=== PATIENT | male | born 1975 | race Caucasian/White ===

== ENCOUNTER 2016-08-24 16:06 | Emergency (ER) | payer BC ==
[2016-08-24 16:22] VITALS: O2SAT 95
--- NOTE | 2016-08-24 16:43 | ERPHSYRPT ---
- History of Present Illness Time Seen by Provider: 08/24/16 16:38 Source: patient Exam Limitations: no limitations Patient Subjective Stated Complaint: pt states he has had left 2nd digit finger pain. denies any injury. Triage Nursing Assessment: pt pink, warm, dry. radial pulses strong. no deformity or swelling noted to left 2nd digit. Physician History: The patient is a 40-year-old right-handed male complaining of pain in his left index finger for 2 weeks. He is also a little bit of swelling. He denies any injury. It hurts when he makes a fist. He has tried ice last night. Occurred: other (2 weeks) Method of Injury: unknown Quality: aching Severity of Pain-Max: mild Severity of Pain-Current: mild Extremities Pain Location: 2nd finger: left Modifying Factors: Improves With: cold therapy, pain medication (tylenol) Associated Symptoms: none Allergies/Adverse Reactions: No Known Drug Allergies Allergy (Verified 08/24/16 16:22) Home Medications: Losartan Potassium 50 mg [Cozaar 50 MG] 50 mg PO DAILY 10/11/13 [History] Hx Tetanus, Diphtheria Vaccination/Date Given: Yes (unknown) Hx Influenza Vaccination/Date Given: No Hx Pneumococcal Vaccination/Date Given: No Immunizations Up to Date: Yes - Review of Systems Constitutional: No Fever, No Chills Eyes: No Symptoms Ears, Nose, & Throat: No Symptoms Respiratory: No Cough, No Dyspnea Cardiac: No Chest Pain, No Edema, No Syncope Abdominal/Gastrointestinal: No Abdominal Pain, No Nausea, No Vomiting, No Diarrhea Genitourinary Symptoms: No Dysuria Musculoskeletal: Other (left index finger pain and swelling) Skin: No Rash Neurological: No Dizziness, No Focal Weakness, No Sensory Changes Psychological: No Symptoms Endocrine: No Symptoms Hematologic/Lymphatic: No Symptoms Immunological/Allergic: No Symptoms All Other Systems: Reviewed and Negative - Past Medical History Pertinent Past Medical History: Yes Neurological History: No Pertinent History ENT History: Other Cardiac History: Hypertension Respiratory History: Asthma Endocrine Medical History: Diabetes Type II Musculoskeletal History: No Pertinent History GI Medical History: GERD History: No Pertinent History Psycho-Social History: No Pertinent History Male Reproductive Disorders: No Pertinent History Other Medical History: COLONOSCOPY - Past Surgical History Past Surgical History: Yes Neuro Surgical History: No Pertinent History Cardiac: Cardiac Catheterization Respiratory: No Pertinent History Gastrointestinal: No Pertinent History Genitourinary: No Pertinent History Musculoskeletal: No Pertinent History Male Surgical History: No Pertinent History Other Surgical History: EYE SURGERY X3 - Social History Smoking Status: Never smoker Exposure to second hand smoke: Yes Drug Use: none Patient Lives Alone: No - Nursing Vital Signs Nursing Vital Signs: Initial Vital Signs Temperature 98.8 F Temperature Source Oral Pulse Rate 84 Respiratory Rate 18 Blood Pressure [Right Arm] 121/83 Pain Intensity 9 - Physical Exam General Appearance: alert Eyes, Ears, Nose, Throat Exam: moist mucous membranes Neck Exam: non-tender, supple Cardiovascular/Respiratory Exam: chest non-tender, normal breath sounds, regular rate/rhythm, no respiratory distress Abdominal Exam: non-tender, No guarding Back Exam: normal inspection, No vertebral tenderness Shoulder Exam: normal inspection Elbow/Forearm Exam: normal inspection Wrist Exam: normal inspection Hand Exam: soft tissue tenderness (Examination of the left index finger reveals some mild swelling of the proximal phalange and tenderness to that region. The area is also tender when the patient flexes the index finger.) Neuro/Tendon Exam: normal sensation, normal motor functions Mental Status Exam: alert, oriented x 3, cooperative Skin Exam: normal color, warm, dry SpO2 Interpretation: normal SpO2: 95 Oxygen Delivery: Room Air - Radiology Exams Left Hand X-ray Interpretation: Interpreted by me, Negative, No Fracture Ordered Tests: Active Orders 24 hr Category Date Time Status FINGER(S) Stat Exams 08/24/16 16:23 Taken - Departure Time of Disposition: 16:47 Departure Disposition: Home Clinical Impression: Tendinitis of finger of left hand Condition: Stable Critical Care Time: No Additional Instructions: You have tendinitis of the index finger of your left hand. You were given a prescription for naproxen 500 mg twice a day as needed. Apply ice as needed. Prescriptions: Naproxen 500 mg PO BID PRN #30 tablet.
--- NOTE | 2016-08-24 16:46 | XRAY ---
Indication: Second finger swelling. Comparison: Left hand June 02, 2007. 3 views of the left second finger demonstrates mild soft tissue swelling. No other bony, articular, or soft tissue abnormalities.
[2016-08-24 16:54] VITALS: BP 117/79; PULSE 78
== END 2016-08-24 17:00 | disposition home or self-care (01) ==
LOC: ED 16:06
DX: M77.9 Enthesopathy, unspecified (principal); M79.645 Pain in left finger(s)
CPT/HCPCS: 73140; 99283

== ENCOUNTER 2019-04-16 11:40 | Emergency (ER) | payer OTHER ==
--- NOTE | 2019-04-16 11:47 | ERPHSYRPT ---
- History of Present Illness Time Seen by Provider: 04/16/19 11:40 Source: patient Exam Limitations: no limitations Physician History: right-sided chest pain and the pain that while taking a deep breath for last 1 month since his right shoulder surgery. Also has some cough and sore throat. Denies any fever.. Timing/Duration: other (1 month) Activities at Onset: none Severity of Dyspnea-Max: moderate Severity of Dyspnea-Current: moderate Possible Cause: frequent episodes Modifying Factors: Improves With: nothing Associated Symptoms: cough, chest pain/discomfort, No anxiety, No edema, No fever, No insomnia, No loss of appetite, No lightheadedness, No wheezing, No weakness, No ankle swelling, No chills, No hemoptysis, No calf pain, No dizziness, No heaviness, No heart racing, No lightheadedness, No leg swelling, No muscle spasms feet, No muscle spasms hands International travel in last 2 weeks: No Allergies/Adverse Reactions: No Known Drug Allergies Allergy (Verified 04/16/19 11:47) Home Medications: Losartan Potassium 50 mg [Cozaar 50 MG] 50 mg PO DAILY 10/11/13 [History] Hx Tetanus, Diphtheria Vaccination/Date Given: Yes (unknown) Hx Influenza Vaccination/Date Given: No Hx Pneumococcal Vaccination/Date Given: No - Review of Systems Constitutional: No Fever, No Chills Eyes: No Symptoms Ears, Nose, & Throat: No Symptoms Respiratory: Cough, Dyspnea Cardiac: Chest Pain, No Edema, No Syncope Abdominal/Gastrointestinal: No Abdominal Pain, No Nausea, No Vomiting, No Diarrhea Genitourinary Symptoms: No Dysuria Musculoskeletal: No Back Pain, No Neck Pain Skin: No Rash Neurological: No Dizziness, No Focal Weakness, No Sensory Changes Psychological: No Symptoms Endocrine: No Symptoms All Other Systems: Reviewed and Negative - Past Medical History Pertinent Past Medical History: Yes Neurological History: No Pertinent History ENT History: Other Cardiac History: Hypertension Respiratory History: Asthma Endocrine Medical History: Diabetes Type II Musculoskeletal History: No Pertinent History GI Medical History: GERD History: No Pertinent History Psycho-Social History: No Pertinent History Male Reproductive Disorders: No Pertinent History Other Medical History: COLONOSCOPY - Past Surgical History Past Surgical History: Yes Neuro Surgical History: No Pertinent History Cardiac: Cardiac Catheterization Respiratory: No Pertinent History Gastrointestinal: No Pertinent History Genitourinary: No Pertinent History Musculoskeletal: No Pertinent History Male Surgical History: No Pertinent History Other Surgical History: EYE SURGERY X3 - Social History Smoking Status: Never smoker Exposure to second hand smoke: Yes Drug Use: none Patient Lives Alone: No - Nursing Vital Signs Nursing Vital Signs: Initial Vital Signs Temperature 97.4 F 04/16/19 11:41 Pulse Rate 106 H 04/16/19 11:41 Respiratory Rate 18 04/16/19 11:41 Blood Pressure 132/92 04/16/19 11:41 O2 Sat by Pulse Oximetry 97 04/16/19 11:41 Pain Scale Pain Intensity 0 - Physical Exam General Appearance: no apparent distress, alert Eye Exam: PERRL/EOMI Neck Exam: normal inspection, supple, No Kernig's, No meningismus Respiratory Exam: normal breath sounds, chest tenderness, lungs clear, airway intact, No respiratory distress, No diminished breath sounds, No accessory muscle use, No prolonged expirations, No crackles/rales, No rhonchi, No wheezing , No stridor Cardiovascular/Chest Exam: normal heart sounds, regular rate/rhythm Abdominal/Gastrointestinal Exam: soft, normal bowel sounds, No tenderness, No distention, No mass Extremity Exam: non-tender, normal range of motion, normal inspection, no calf tenderness, no pedal edema Neurologic Exam: alert, oriented x 3, cooperative, brush filler hand II-XII nml as tested, sensation nml, No motor deficits Skin Exam: normal color, warm, No dry SpO2 Interpretation: normal - Course EKG Interpreted by Me: RATE (99), Sinus Rhythm, Non-specific ST Changes - Radiology Exams Chest X-ray Interpretation: Discussed w/ radiologist, Negative - CT Exams Chest CT Interpretation: Discussed w/radiologist, No PE Ordered Tests: Active Orders 24 hr Category Date Time Status Soccer Player STAT Care 04/16/19 11:44 Active EKG-ER Only STAT Care 04/16/19 11:42 Active IV Insertion STAT Care 04/16/19 11:42 Active Pulse Oximetry (ED) STAT Care 04/16/19 11:42 Active CHEST 1 VIEW (PORTABLE) Stat Exams 04/16/19 11:44 Completed CHEST WITH CONTRAST [CT] Stat Exams 04/16/19 13:02 Completed BLOOD CULTURE Stat Lab 04/16/19 12:20 Received CBC W DIFF Stat Lab 04/16/19 12:20 Completed CMP Stat Lab 04/16/19 12:20 Completed D-DIMER QUANTITATIVE Stat Lab 04/16/19 12:20 Completed Lactic Acid Stat Lab 04/16/19 12:15 Results NT PRO BNP Stat Lab 04/16/19 12:20 Completed TROPONIN Stat Lab 04/16/19 12:20 Completed Peak Expiratory Flow Rate ONCE RT 04/16/19 12:22 Active Respiratory Therapy Assessment DAILY RT 04/16/19 12:16 Active Medication Summary Discontinued Medications Generic Name Dose Route Start Last Admin Trade Name Freq PRN Reason Stop Dose Admin Albuterol/Ipratropium 3 ml 04/16/19 11:42 04/16/19 12:11 Duoneb 0.5-3 Mg/3 Ml Neb IH 04/16/19 11:43 3 ml STAT ONE Administration Albuterol/Ipratropium Confirm 04/16/19 12:01 Duoneb 0.5-3 Mg/3 Ml Neb Administered 04/16/19 12:02 Dose 3 ml IH .STK-MED ONE Aspirin 324 mg 04/16/19 11:42 04/16/19 12:28 Baby Aspirin 81 Mg Chew PO 04/16/19 11:43 324 mg STAT ONE Administration Aspirin Confirm 04/16/19 12:26 Baby Aspirin 81 Mg Chew Administered 04/16/19 12:27 Dose 324 mg .ROUTE .STK-MED ONE Lab/Rad Data: Laboratory Result Diagrams 04/16/19 12:20 04/16/19 12:20 Laboratory Results 04/16/19 04/16/19 04/16/19 Range/Units 12:20 12:20 12:20 WBC (4.0-10.5) K/mm3 RBC (4.1-5.6) M/mm3 Hgb (12.5-18.0) gm/dl Hct (42-50) % MCV (78-100) fl MCH (26-32) pg MCHC (32-36) g/dl RDW (11.5-14.0) % Plt Count (150-450) K/mm3 MPV (6-9.5) fl Gran % (36.0-66.0) % Eos # (Auto) (0-0.5) Absolute Lymphs (auto) (1.0-4.6) Absolute Monos (auto) (0.0-1.3) Lymphocytes % (24.0-44.0) % Monocytes % (0.0-12.0) % Eosinophils % (0.00-5.0) % Basophils % (0.0-0.4) % Absolute Granulocytes (1.4-6.9) Basophils # (0-0.4) D-Dimer 549 H* (215-500) ng/mL Sodium 135 L (137-145) mmol/L Potassium 4.9 (3.5-5.1) mmol/L Chloride 101 (98-107) mmol/L Carbon Dioxide 22 (22-30) mmol/L Anion Gap 17.0 H (5-15) MEQ/L BUN 21 H (9-20) mg/dL Creatinine 0.84 (0.66-1.25) mg/dL Estimated GFR > 60.0 ML/MIN Glucose 379 H (74-106) mg/dL Lactic Acid (0.4-2.0) Calcium 9.9 (8.4-10.2) mg/dL Total Bilirubin 0.80 (0.2-1.3) mg/dL AST 26 (17-59) U/L ALT 25 (0-50) U/L Alkaline Phosphatase 123 (38-126) U/L Troponin I < 0.012 (0.000-0.034) ng/mL NT-Pro-B Natriuret Pep 148 (0-450) pg/mL Serum Total Protein 8.6 H (6.3-8.2) g/dL Albumin 4.4 (3.5-5.0) g/dL Influenza Type A Ag NEGATIVE (NEGATIVE) Influenza Type B Ag NEGATIVE (NEGATIVE) RSV (PCR) NEGATIVE (Negative) Group A Strep Antibody NEGATIVE (NEGATIVE) 04/16/19 04/16/19 Range/Units 12:20 12:15 WBC 8.1 (4.0-10.5) K/mm3 RBC 5.94 H (4.1-5.6) M/mm3 Hgb 17.0 (12.5-18.0) gm/dl Hct 48.0 (42-50) % MCV 80.8 (78-100) fl MCH 28.6 (26-32) pg MCHC 35.4 (32-36) g/dl RDW 13.3 (11.5-14.0) % Plt Count 155 (150-450) K/mm3 MPV 11.2 H (6-9.5) fl Gran % 51.6 (36.0-66.0) % Eos # (Auto) 0.07 (0-0.5) Absolute Lymphs (auto) 3.06 (1.0-4.6) Absolute Monos (auto) 0.75 (0.0-1.3) Lymphocytes % 37.7 (24.0-44.0) % Monocytes % 9.2 (0.0-12.0) % Eosinophils % 0.9 (0.00-5.0) % Basophils % 0.6 (0.0-0.4) % Absolute Granulocytes 4.18 (1.4-6.9) Basophils # 0.05 (0-0.4) D-Dimer (215-500) ng/mL Sodium (137-145) mmol/L Potassium (3.5-5.1) mmol/L Chloride (98-107) mmol/L Carbon Dioxide (22-30) mmol/L Anion Gap (5-15) MEQ/L BUN (9-20) mg/dL Creatinine (0.66-1.25) mg/dL Estimated GFR ML/MIN Glucose (74-106) mg/dL Lactic Acid 2.1 H (0.4-2.0) Calcium (8.4-10.2) mg/dL Total Bilirubin (0.2-1.3) mg/dL AST (17-59) U/L ALT (0-50) U/L Alkaline Phosphatase (38-126) U/L Troponin I (0.000-0.034) ng/mL NT-Pro-B Natriuret Pep (0-450) pg/mL Serum Total Protein (6.3-8.2) g/dL Albumin (3.5-5.0) g/dL Influenza Type A Ag (NEGATIVE) Influenza Type B Ag (NEGATIVE) RSV (PCR) (Negative) Group A Strep Antibody (NEGATIVE) - Progress Progress: improved Air Movement: good Progress Note: 04/16/19 14:17 patient's symptoms for more than one month duration. Workup negative. Most likely this is related to his shoulders surgery and muscular pain. No evidence of ACS. Blood Culture(s) Obtained: No Antibiotics given: No Counseled pt/family regarding: lab results, diagnosis, need for follow-up, rad results - Departure Departure Disposition: Home Clinical Impression: Chest wall pain Condition: Good Critical Care Time: No Referrals: DOCTOR,NO FAMILY [Primary Care Provider] - 04/17/19 Instructions: Chest Pain That Is Not Caused by the Heart (DC) Additional Instructions: see PCP for outpatient stress test. Return to the ER for an emergency or his symptoms or worsening symptoms.
[2019-04-16] MEDS ORDERED: DUONEB 0.5-3 MG/3 ml Neb IH ONE (12:01)
[2019-04-16] MEDS: DUONEB 0.5-3 MG/3 ml Neb IH ONE (12:11)
[2019-04-16 12:17] LABS: Lactic Acid 2.1 (0.4-2.0)
[2019-04-16] MEDS ORDERED: BABY ASPIRIN 81 MG CHEW ONE (12:26)
[2019-04-16] MEDS: BABY ASPIRIN 81 MG CHEW PO ONE (12:28)
--- NOTE | 2019-04-16 12:29 | XRAY ---
Indication: Right chest pain. Comparison: April 29, 2013. Portable chest again demonstrates normal heart and lungs. Bony thorax intact. No new/acute findings.
[2019-04-16 12:42] LABS: Absolute Neutrophil Ct (ANC) 4.18 (1.4-6.9); BASOPHIL % 0.6 % (0.0-0.4); Basophil (Absolute #) 0.05 (0-0.4); Eosinophil % 0.9 % (0.00-5.0); Eosinophil (Absolute #) 0.07 (0-0.5); Lymphocyte (Absolute #) 3.06 (1.0-4.6); Lymphocytes % 37.7 % (24.0-44.0); Mean Cell Volume 80.8 fl (78-100); Mean Corpuscular Hemoglobin 28.6 pg (26-32); Mean Corpuscular Hgb Concent. 35.4 g/dl (32-36); Mean Platelet Volume 11.2 fl (6-9.5); Monocyte (Absolute #) 0.75 (0.0-1.3); Monocytes % 9.2 % (0.0-12.0); Neutrophil % 51.6 % (36.0-66.0); Platelet Count 155 K/mm3 (150-450); Red Blood Count 5.94 M/mm3 (4.1-5.6); Red Cell Distribution Width 13.3 % (11.5-14.0); White Blood Count 8.1 K/mm3 (4.0-10.5)
[2019-04-16 13:00] LABS: ALBUMIN 4.4 g/dL (3.5-5.0); ALKALINE PHOSPHATASE 123 U/L (38-126); BLOOD UREA NITROGEN 21 mg/dL (9-20); CHLORIDE 101 mmol/L (98-107); Calcium 9.9 mg/dL (8.4-10.2); Carbon Dioxide 22 mmol/L (22-30); Creatinine 1 0.84 mg/dL (0.66-1.25); Glucose 379 mg/dL (74-106); NT PRO BNP 148 pg/mL (0-450); Potassium 4.9 mmol/L (3.5-5.1); SGOT/AST 26 U/L (17-59); SGPT/ALT 25 U/L (0-50); SODIUM 135 mmol/L (137-145); Total Protein 8.6 g/dL (6.3-8.2)
[2019-04-16 13:05] LABS: TROPONIN < 0.012 ng/mL (0.000-0.034)
[2019-04-16 13:23] LABS: INFLUENZA A NEGATIVE (NEGATIVE); INFLUENZA B NEGATIVE (NEGATIVE); RESPIRATORY SYNCTIAL VIRUS NEGATIVE (Negative)
--- NOTE | 2019-04-16 14:09 | XRAY ---
Indication: Chest pain. Elevated d-dimer. Multiple contiguous axial images obtained through the chest using 80 cc Isovue 370 contrast and PE protocol. Comparison: April 29, 2013. There is satisfactory opacification of the pulmonary arteries to include the lobar and segmental branches. Again no pulmonary embolus. Heart is not enlarged. Aorta is normal in course and caliber. No pathologic mediastinal/hilar lymphadenopathy. Lungs are inflated again with minimal lingula and left base fibrosis/scarring. No suspicious pulmonary mass, infiltrate, or effusion. Bony thorax intact. Limited upper abdomen again demonstrates fatty liver and previous cholecystectomy. Impression: 1. Again negative pulmonary embolus. No new/acute cardiopulmonary abnormalities. 2. Stable fatty liver. CT DI 27.47
[2019-04-16 14:21] VITALS: BP 119/69; PULSE 98; O2SAT 95
== END 2019-04-16 14:30 | disposition home or self-care (01) ==
LOC: ED 11:40
DX: R07.9 Chest pain, unspecified (principal)
CPT/HCPCS: 36415; 71045; 71260; 80053; 83605; 83880; 84484; 85025; 85379; 87040; 87631; 87651; 93005; 93041; 94150; 94640; 94760; 99284; A9270-GY

== ENCOUNTER 2020-03-05 07:32 | Emergency (ER) | payer SELFPAY ==
[2020-03-05] MEDS ORDERED: Sodium Chloride 0.9% 1000 ML 1,000 ML IV STA (08:04)
[2020-03-05] MEDS ORDERED: Zofran 4 MG/2 ML VIAL IV ONE (08:04)
[2020-03-05] MEDS ORDERED: Hydromorphone 1 mg/ml Injection IV ONE ×2 (08:04→09:25)
--- NOTE | 2020-03-05 08:11 | ERPHSYRPT ---
- History of Present Illness Time Seen by Provider: 03/05/20 07:45 Historian: patient Exam Limitations: no limitations Patient Subjective Stated Complaint: pt here for abd pain to right side of abd since last night with nausea, no fever Triage Nursing Assessment: pt alert, waked in, resp easy, mask in place, holding right side of abd, abd soft, no edema Physician History: Patient has had right-sided lower abdominal pain for the past 11 hours. Patient has not been evaluated or treated prior to coming into the emergency department Timing/Duration: hour(s) (11) Activities at Onset: none Quality: aching, sharpness, stabbing, throbbing Abdominal Pain Onset Location: RLQ Pain Radiation: no radiation Severity of Pain-Max: severe Severity of Pain-Current: severe Associated Symptoms: diarrhea, nausea, No back, No chest pain, No diaphoresis, No fever/chills, No fatigue, No headache, No heartburn, No loss of appetite, No neck pain, No rash, No shortness of breath, No syncope, No testicular pain, No vomiting, No weakness Previous symptoms: same symptoms as today, no recent treatment Allergies/Adverse Reactions: No Known Drug Allergies Allergy (Verified 03/05/20 07:48) Home Medications: Losartan Potassium 50 mg [Cozaar 50 MG] 50 mg PO DAILY 10/11/13 [History] Hx Tetanus, Diphtheria Vaccination/Date Given: Yes (unknown) Hx Influenza Vaccination/Date Given: No Hx Pneumococcal Vaccination/Date Given: No Immunizations Up to Date: Yes Travel Risk - International Travel Have you traveled outside of the country in past 3 weeks: No - Coronavirus Screening Are you exhibiting any of the following symptoms?: No Close contact with a COVID-19 positive Pt in past 14-21 Days: No - Review of Systems Constitutional: No Fever, No Chills Eyes: No Eye Pain, No Vision Changes, No Other (negative discoloration) Ears, Nose, & Throat: No Nose Congestion, No Sinus Drainage, No Mouth Swelling, No Painful Swallowing Respiratory: No Cough, No Dyspnea Cardiac: No Chest Pain, No Edema, No Syncope Abdominal/Gastrointestinal: No Abdominal Pain, No Nausea, No Vomiting, No Diarrhea Genitourinary Symptoms: No Dysuria, No Hematuria, No Urgency, No Urinary Retention, No Flank Pain, No Testicle Pain Musculoskeletal: No Back Pain, No Neck Pain Skin: No Rash Neurological: No Dizziness, No Focal Weakness, No Headache, No Sensory Changes Psychological: No Anxiety Endocrine: No Polyuria, No Excessive Sweating Hematologic/Lymphatic: No Easy Bleeding, No Easy Bruising All Other Systems: Reviewed and Negative - Past Medical History Pertinent Past Medical History: Yes Neurological History: No Pertinent History ENT History: Other Cardiac History: Hypertension Respiratory History: Asthma Endocrine Medical History: Diabetes Type II Musculoskeletal History: No Pertinent History GI Medical History: GERD History: No Pertinent History Psycho-Social History: No Pertinent History Male Reproductive Disorders: No Pertinent History Other Medical History: COLONOSCOPY - Past Surgical History Past Surgical History: Yes Neuro Surgical History: No Pertinent History Cardiac: Cardiac Catheterization Respiratory: No Pertinent History Gastrointestinal: Cholecystectomy Genitourinary: No Pertinent History Musculoskeletal: No Pertinent History, Orthopedic Surgery Male Surgical History: No Pertinent History Other Surgical History: EYE SURGERY X9,shoulder x2 - Social History Smoking Status: Never smoker Exposure to second hand smoke: Yes Drug Use: none Patient Lives Alone: No - Nursing Vital Signs Nursing Vital Signs: Initial Vital Signs Temperature 98.1 F 03/05/20 07:43 Pulse Rate 92 H 03/05/20 07:43 Respiratory Rate 16 03/05/20 07:43 Blood Pressure 143/87 03/05/20 07:43 O2 Sat by Pulse Oximetry 95 03/05/20 07:43 Pain Scale Pain Intensity 2 - Physical Exam General Appearance: no apparent distress, alert Eye Exam: PERRL/EOMI, eyes nml inspection Ears, Nose, Throat Exam: normal ENT inspection, pharynx normal, moist mucous membranes Neck Exam: normal inspection, non-tender, supple, full range of motion Respiratory Exam: normal breath sounds, lungs clear, airway intact, No respiratory distress, No accessory muscle use, No prolonged expirations, No crackles/rales, No rhonchi Cardiovascular Exam: regular rate/rhythm, normal heart sounds Gastrointestinal/Abdomen Exam: soft, No tenderness, No mass Male Genitalia Exam: normal genitalia, other (chaperoned Sharon Carnes RN), No hernia, No testicular tenderness, No testicular mass, No penile lesion, No penile discharge Back Exam: normal inspection, normal range of motion, No CVA tenderness, No vertebral tenderness Extremity Exam: normal inspection, normal range of motion, pelvis stable Neurologic Exam: alert, oriented x 3, cooperative, acid leveler II-XII nml as tested, normal mood/affect, sensation nml, No motor deficits Skin Exam: normal color, warm, dry, No rash, No petechiae, No ecchymosis Lymphatic Exam: No adenopathy, No inguinal node tender (L), No inguinal node tender (R) SpO2 Interpretation: normal SpO2: 95 O2 Delivery: Room Air - Course Nursing assessment & vital signs reviewed: Yes - CT Exams Abdomen/Pelvis CT Interpretation: No appendicitis, Other (Per radiology interpretation: Minimal colonic diverticulitis and fatty liver. Remaining CT of the abdomen and pelvis with contrast exam is negative) Ordered Tests: Active Orders 24 hr Category Date Time Status IV Insertion STAT Care 03/05/20 08:04 Active ABDOMEN AND PELVIS W CONTRAST [CT] Stat Exams 03/05/20 09:25 Completed AMYLASE Stat Lab 03/05/20 08:00 Completed CBC W DIFF Stat Lab 03/05/20 08:00 Completed CMP Stat Lab 03/05/20 08:00 Completed LIPASE Stat Lab 03/05/20 08:00 Completed Lactic Acid Stat Lab 03/05/20 08:58 Completed PROTIME WITH INR Stat Lab 03/05/20 08:00 Completed UA W/RFX UR CULTURE Stat Lab 03/05/20 08:11 Completed Medication Summary Discontinued Medications Generic Name Dose Route Start Last Admin Trade Name Jocelyn PRN Reason Stop Dose Admin Hydromorphone HCl 1 mg 03/05/20 08:04 03/05/20 08:27 Hydromorphone 1 Mg/Ml Injection IV 03/05/20 08:05 1 mg STAT ONE Administration Hydromorphone HCl Confirm 03/05/20 08:12 Hydromorphone 1 Mg/Ml Injection Administered 03/05/20 08:13 Dose 1 mg .ROUTE .STK-MED ONE Hydromorphone HCl 1 mg 03/05/20 09:25 03/05/20 09:32 Hydromorphone 1 Mg/Ml Injection IV 03/05/20 09:26 1 mg STAT ONE Administration Hydromorphone HCl Confirm 03/05/20 09:26 Hydromorphone 1 Mg/Ml Injection Administered 03/05/20 09:27 Dose 1 mg .ROUTE .STK-MED ONE Sodium Chloride 1,000 mls @ 999 mls/hr 03/05/20 08:04 03/05/20 10:15 Sodium Chloride 0.9% 1000 Ml IV 03/05/20 09:04 Infused .Q1H1M STA Infusion Sodium Chloride Confirm 03/05/20 08:12 Sodium Chloride 0.9% 1000 Ml Administered 03/05/20 08:13 Dose 1,000 mls @ ud .ROUTE .STK-MED ONE Insulin Human Regular 10 unit 03/05/20 09:27 03/05/20 09:32 Humulin R IV 03/05/20 09:28 10 unit STAT ONE Administration Insulin Human Regular Confirm 03/05/20 09:29 Humulin R Administered 03/05/20 09:30 Dose 10 unit .ROUTE .STK-MED ONE Ondansetron HCl 4 mg 03/05/20 08:04 03/05/20 08:28 Zofran 4 Mg/2 Ml Vial IV 03/05/20 08:05 4 mg STAT ONE Administration Ondansetron HCl Confirm 03/05/20 08:12 Zofran 4 Mg/2 Ml Vial Administered 03/05/20 08:13 Dose 4 mg .ROUTE .STK-MED ONE Lab/Rad Data: Laboratory Result Diagrams 03/05/20 08:00 03/05/20 08:00 Laboratory Results 03/05/20 03/05/20 03/05/20 Range/Units 08:58 08:11 08:00 WBC (4.0-10.5) K/mm3 RBC (4.1-5.6) M/mm3 Hgb (12.5-18.0) gm/dl Hct (42-50) % MCV (78-100) fl MCH (26-32) pg MCHC (32-36) g/dl RDW (11.5-14.0) % Plt Count (150-450) K/mm3 MPV (7.5-11.0) fl Gran % (36.0-66.0) % Eos # (Auto) (0-0.5) Absolute Lymphs (auto) (1.0-4.6) Absolute Monos (auto) (0.0-1.3) Lymphocytes % (24.0-44.0) % Monocytes % (0.0-12.0) % Eosinophils % (0.00-5.0) % Basophils % (0.0-0.4) % Absolute Granulocytes (1.4-6.9) Basophils # (0-0.4) PT 12.6 (8.83-12.87) SECONDS INR 1.11 (0.8-3.0) Sodium (137-145) mmol/L Potassium (3.5-5.1) mmol/L Chloride (98-107) mmol/L Carbon Dioxide (22-30) mmol/L Anion Gap (5-15) MEQ/L BUN (9-20) mg/dL Creatinine (0.66-1.25) mg/dL Estimated GFR ML/MIN Glucose (74-106) mg/dL Lactic Acid 0.8 (0.4-2.0) Calcium (8.4-10.2) mg/dL Total Bilirubin (0.2-1.3) mg/dL AST (17-59) U/L ALT (0-50) U/L Alkaline Phosphatase (38-126) U/L Serum Total Protein (6.3-8.2) g/dL Albumin (3.5-5.0) g/dL Amylase (30-110) U/L Lipase (23-300) U/L Urine Color YELLOW (YELLOW) Urine Appearance CLEAR (CLEAR) Urine pH 5.0 (5-6) Ur Specific Unity 1.040 (1.005-1.025) Urine Protein NEGATIVE (Negative) Urine Ketones SMALL (NEGATIVE) Urine Blood NEGATIVE (0-5) Junior/ul Urine Nitrite NEGATIVE (NEGATIVE) Urine Bilirubin NEGATIVE (NEGATIVE) Urine Urobilinogen NEGATIVE (0-1) mg/dL Ur Leukocyte Esterase NEGATIVE (NEGATIVE) Urine WBC (Auto) 0-2 (0-5) /HPF Urine RBC (Auto) NONE (0-2) /HPF U Epithel Cells (Auto) NONE (FEW) /HPF Urine Bacteria (Auto) NONE SEEN (NEGATIVE) /HPF Urine Mucus (Auto) SLIGHT (NEGATIVE) /HPF Urine Culture Reflexed NO (NO) Urine Glucose >=500 (NEGATIVE) mg/dL 03/05/20 03/05/20 Range/Units 08:00 08:00 WBC 4.9 (4.0-10.5) K/mm3 RBC 5.83 H (4.1-5.6) M/mm3 Hgb 16.6 (12.5-18.0) gm/dl Hct 47.2 (42-50) % MCV 81.0 (78-100) fl MCH 28.5 (26-32) pg MCHC 35.2 (32-36) g/dl RDW 13.4 (11.5-14.0) % Plt Count 151 (150-450) K/mm3 MPV 10.4 (7.5-11.0) fl Gran % 50.9 (36.0-66.0) % Eos # (Auto) 0.01 (0-0.5) Absolute Lymphs (auto) 1.58 (1.0-4.6) Absolute Monos (auto) 0.77 (0.0-1.3) Lymphocytes % 32.6 (24.0-44.0) % Monocytes % 15.9 H (0.0-12.0) % Eosinophils % 0.2 (0.00-5.0) % Basophils % 0.4 (0.0-0.4) % Absolute Granulocytes 2.47 (1.4-6.9) Basophils # 0.02 (0-0.4) PT (8.83-12.87) SECONDS INR (0.8-3.0) Sodium 132 L (137-145) mmol/L Potassium 4.4 (3.5-5.1) mmol/L Chloride 100 (98-107) mmol/L Carbon Dioxide 23 (22-30) mmol/L Anion Gap 13.4 (5-15) MEQ/L BUN 12 (9-20) mg/dL Creatinine 0.77 (0.66-1.25) mg/dL Estimated GFR > 60.0 ML/MIN Glucose 319 H (74-106) mg/dL Lactic Acid (0.4-2.0) Calcium 9.1 (8.4-10.2) mg/dL Total Bilirubin 0.70 (0.2-1.3) mg/dL AST 39 (17-59) U/L ALT 45 (0-50) U/L Alkaline Phosphatase 88 (38-126) U/L Serum Total Protein 7.7 (6.3-8.2) g/dL Albumin 4.2 (3.5-5.0) g/dL Amylase 54 (30-110) U/L Lipase 121 (23-300) U/L Urine Color (YELLOW) Urine Appearance (CLEAR) Urine pH (5-6) Ur Specific Unity (1.005-1.025) Urine Protein (Negative) Urine Ketones (NEGATIVE) Urine Blood (0-5) Junior/ul Urine Nitrite (NEGATIVE) Urine Bilirubin (NEGATIVE) Urine Urobilinogen (0-1) mg/dL Ur Leukocyte Esterase (NEGATIVE) Urine WBC (Auto) (0-5) /HPF Urine RBC (Auto) (0-2) /HPF U Epithel Cells (Auto) (FEW) /HPF Urine Bacteria (Auto) (NEGATIVE) /HPF Urine Mucus (Auto) (NEGATIVE) /HPF Urine Culture Reflexed (NO) Urine Glucose (NEGATIVE) mg/dL - Progress Progress: unchanged Progress Note: 03/05/20 09:26 Pain had improved slightly with 1 mg Dilaudid but returned. Patient will give another milligram of Dilaudid with urinalysis being negative, patient still has significant right lower quadrant pain and no other lab work to suggest any other etiology, CT of the abdomen pelvis with IV contrast will be performed since patient had tenderness to the right lower quadrant on examination 03/05/20 10:30 Patient's pain is very well controlled and he has no tenderness on repeat abdominal examination to the right lower quadrant or any other aspect of his abdomen 03/05/20 11:10 Patient came in with worsening right lower quadrant pain over the past 12 hours, so lab work, urinalysis, and CT scan were performed. Lab work, urinalysis, and CT scan did not give an etiology to why he is having right lower quadrant abdominal pain, but he did have signs of hypoglycemia so insulin was given to help lower his glucose and he was given 2 rounds of Dilaudid to get his pain under control. Patient did have incidental findings of colonic diverticulosis and fatty liver that were mild but otherwise CT of the abdomen pelvis were negative and lab work looked good and did not require immediate surgical cons ultation, urologic consultation or inpatient mission further evaluation, monitoring or treatment. Patient will be discharged home with follow-up with his primary care physician or primary care referral and general surgeon referral to continue evaluation of his symptoms. I reviewed with him in detail what signs and symptoms to return back to the emergency department Counseled pt/family regarding: lab results, diagnosis, need for follow-up, rad results - Departure Departure Disposition: Home Clinical Impression: RLQ abdominal pain, Colon, diverticulosis, Fatty liver Hyperglycemia due to type 2 diabetes mellitus Qualifiers: Diabetes mellitus manager long term care insulin use: unspecified mcfp insulin use status Qualified Code(s): E11.65 - Type 2 diabetes mellitus with hyperglycemia Hypertension Qualifiers: Hypertension type: essential hypertension Qualified Code(s): I10 - Essential (primary) hypertension Condition: Good Critical Care Time: No Referrals: DUYEN MOSER MD [ASSOCIATE STAFF] - 03/05/20 (General surgeon for your reference ) DOCTOR,NO FAMILY [Primary Care Provider] - ARIN VACA [ACTIVE STAFF] - Follow Up with PCP/3 days (Primary care physician to follow-up your medical conditions) Instructions: High Blood Pressure (DC), Acute Abdomen (Belly Pain), Diverticulosis (DC), Hyperglycemia, Adult (DC), Nonalcoholic Fatty Liver Disease (DC) Additional Instructions: Evaluation today did not show a reason why you are having pain your right lower quadrant is no diverticulitis, appendicitis, blockage, inflammation of any organs or stones were seen return immediately back to emergency room for any worsening abdominal pain, any fever, new blood in urine, any blood in the stool, or any other concerning signs or symptoms that were not present at today's emergency room visit for immediate reevaluation in the emergency department Forms: Work/School Release Form
[2020-03-05] MEDS ORDERED: Hydromorphone 1 mg/ml Injection ONE ×2 (08:12→09:26)
[2020-03-05] MEDS ORDERED: Sodium Chloride 0.9% 1000 ML 1,000 ML ONE (08:12)
[2020-03-05] MEDS ORDERED: Zofran 4 MG/2 ML VIAL ONE (08:12)
[2020-03-05 08:43] LABS: Absolute Neutrophil Ct (ANC) 2.47 (1.4-6.9); BASOPHIL % 0.4 % (0.0-0.4); Basophil (Absolute #) 0.02 (0-0.4); Eosinophil % 0.2 % (0.00-5.0); Eosinophil (Absolute #) 0.01 (0-0.5); Hematocrit 47.2 % (42-50); Hemoglobin 16.6 gm/dl (12.5-18.0); Lymphocyte (Absolute #) 1.58 (1.0-4.6); Lymphocytes % 32.6 % (24.0-44.0); Mean Corpuscular Hemoglobin 28.5 pg (26-32); Mean Corpuscular Hgb Concent. 35.2 g/dl (32-36); Mean Platelet Volume 10.4 fl (7.5-11.0); Monocyte (Absolute #) 0.77 (0.0-1.3); Monocytes % 15.9 % (0.0-12.0); Neutrophil % 50.9 % (36.0-66.0); Platelet Count 151 K/mm3 (150-450); Red Blood Count 5.83 M/mm3 (4.1-5.6); Red Cell Distribution Width 13.4 % (11.5-14.0); White Blood Count 4.9 K/mm3 (4.0-10.5)
[2020-03-05 08:46] LABS: Appearance CLEAR (CLEAR); Bilirubin NEGATIVE (NEGATIVE); Blood NEGATIVE Ery/ul (0-5); Glucose >=500 mg/dL (NEGATIVE); Ketones SMALL (NEGATIVE); Leukocyte Esterase NEGATIVE (NEGATIVE); Mucus SLIGHT /HPF (NEGATIVE); Nitrite NEGATIVE (NEGATIVE); Protein,Urine Dip NEGATIVE (Negative); Urobilinogen NEGATIVE mg/dL (0-1); WBC 0-2 /HPF (0-5)
[2020-03-05 08:46] LABS: INR 1.11 (0.8-3.0); PROTIME 12.6 SECONDS (8.83-12.87)
[2020-03-05 08:51] LABS: ALBUMIN 4.2 g/dL (3.5-5.0); ALKALINE PHOSPHATASE 88 U/L (38-126); AMYLASE 54 U/L (30-110); ANION GAP 13.4 MEQ/L (5-15); BLOOD UREA NITROGEN 12 mg/dL (9-20); CHLORIDE 100 mmol/L (98-107); Calcium 9.1 mg/dL (8.4-10.2); Carbon Dioxide 23 mmol/L (22-30); Creatinine 1 0.77 mg/dL (0.66-1.25); EST GLOMERULAR FILTRATION RATE > 60.0 ML/MIN; Glucose 319 mg/dL (74-106); LIPASE 121 U/L (23-300); Potassium 4.4 mmol/L (3.5-5.1); SGOT/AST 39 U/L (17-59); SGPT/ALT 45 U/L (0-50); SODIUM 132 mmol/L (137-145); Total Protein 7.7 g/dL (6.3-8.2)
[2020-03-05 09:00] LABS: Bacteria NONE SEEN /HPF (NEGATIVE)
[2020-03-05] MEDS ORDERED: HUMULIN R IV ONE (09:27)
[2020-03-05] MEDS ORDERED: HUMULIN R ONE (09:29)
--- NOTE | 2020-03-05 10:11 | XRAY ---
Indication: Right abdomen pain. Multiple contiguous axial images obtained through the abdomen and pelvis using 80 cc Isovue 370 contrast only as ordered. Comparison: April 29, 2013. Lung bases demonstrates mild dependent atelectasis. No infiltrate or effusion. Heart is not enlarged. Noncontrasted stomach and bowel loops appear nonobstructed. Normal air-filled appendix. Very minimal scattered colonic diverticulosis. Again mild diffuse fatty liver and cholecystectomy. No free fluid/air. Remaining liver, pancreas, spleen, adrenal glands, kidneys, ureters, and bladder appear unremarkable. Minimal aortic calcifications. No AAA or pathologic retroperitoneal lymphadenopathy. Osseous structures intact with minimal degenerative changes throughout the thoracolumbar spine. Impression: 1. Minimal colonic diverticulosis and fatty liver. 2. Remaining CT abdomen/pelvis with contrast exam is negative.
[2020-03-05 11:46] VITALS: BP 146/96; PULSE 87; O2SAT 98
== END 2020-03-05 11:46 | disposition home or self-care (01) ==
LOC: ED 07:32
DX: R10.31 Right lower quadrant pain (principal); K57.90 Diverticulosis of intestine, part unspecified, without perforation or abscess without bleeding; K76.0 Fatty (change of) liver, not elsewhere classified; Z79.899 Other long term (current) drug therapy
CPT/HCPCS: 36000; 36415; 74177; 80053; 81001; 82150; 82947; 83605; 83690; 85025; 85610; 96360; 96374; 96375; 96376; 99284; J1170; J1815; J2405

== ENCOUNTER 2020-03-06 04:01 | Emergency (ER) | payer SELFPAY ==
--- NOTE | 2020-03-06 04:42 | ERPHSYRPT ---
- History of Present Illness Time Seen by Provider: 03/06/20 04:20 Source: patient Exam Limitations: no limitations Patient Subjective Stated Complaint: pt states he was in the er yesterday for abd pain. states he has no abd pain now but has developed a fever, chills, and body aches. temp 99.6 at home tonight. Triage Nursing Assessment: pt alert and oriented, answers questions approp, pt ambulatory with steady gait noted. respirations nonlabored with lungs cta. skin warm and dry. Physician History: This is a 44-year-old white male who presents with complaint of fever and chills while at home. Patient was seen less than 24 hours ago in this emergency department with complaints of right lower quadrant abdominal pain. He had a complete work-up including CAT scan. There is no significant, acute or emergent findings on that work-up. Patient returns this morning with the above complaint. He denies cough. He denies shortness of breath. He has no nausea vomiting or diarrhea. Patient states he had a measured temperature of 99.6 F at home. At midnight he took some Tylenol. He arrives to the emergency department with a normal body temperature. Timing/Duration: today Fever Severity: gone Fever Therapy TOP POLISHER: Acetaminophen Associated Symptoms: denies symptoms Allergies/Adverse Reactions: No Known Drug Allergies Allergy (Verified 03/06/20 04:21) Home Medications: Losartan Potassium 50 mg [Cozaar 50 MG] 50 mg PO DAILY 10/11/13 [History] Hx Tetanus, Diphtheria Vaccination/Date Given: Yes (unknown) Hx Influenza Vaccination/Date Given: No Hx Pneumococcal Vaccination/Date Given: No Travel Risk - International Travel Have you traveled outside of the country in past 3 weeks: No - Coronavirus Screening Are you exhibiting any of the following symptoms?: Yes Symptoms: Fever, Headaches/Body Aches/Fatigue Close contact with a COVID-19 positive Pt in past 14-21 Days: No - Review of Systems Constitutional: Fever Eyes: No Symptoms Ears, Nose, & Throat: No Symptoms Respiratory: No Symptoms Cardiac: No Symptoms Abdominal/Gastrointestinal: No Symptoms Genitourinary Symptoms: No Symptoms Musculoskeletal: Arthralgias, Myalgias Neurological: No Symptoms Psychological: No Symptoms, Hallucinations Endocrine: No Symptoms Hematologic/Lymphatic: No Symptoms Immunological/Allergic: No Symptoms All Other Systems: Reviewed and Negative - Past Medical History Pertinent Past Medical History: Yes Neurological History: No Pertinent History ENT History: Other Cardiac History: Hypertension Respiratory History: Asthma Endocrine Medical History: Diabetes Type II Musculoskeletal History: No Pertinent History GI Medical History: Diverticulosis, GERD History: No Pertinent History Psycho-Social History: No Pertinent History Male Reproductive Disorders: No Pertinent History Other Medical History: COLONOSCOPY - Past Surgical History Past Surgical History: Yes Neuro Surgical History: No Pertinent History Cardiac: Cardiac Catheterization Respiratory: No Pertinent History Gastrointestinal: Cholecystectomy Genitourinary: No Pertinent History Musculoskeletal: No Pertinent History, Orthopedic Surgery Male Surgical History: No Pertinent History Other Surgical History: EYE SURGERY X9,shoulder x2 - Social History Smoking Status: Never smoker Exposure to second hand smoke: Yes Drug Use: none Patient Lives Alone: No - Nursing Vital Signs Nursing Vital Signs: Initial Vital Signs Temperature 98.1 F 03/06/20 04:10 Pulse Rate 79 03/06/20 04:10 Respiratory Rate 18 03/06/20 04:10 Blood Pressure 153/90 03/06/20 04:10 O2 Sat by Pulse Oximetry 97 03/06/20 04:10 Pain Scale Pain Intensity 0 - Physical Exam General Appearance: no apparent distress, alert, anxiety Eye Exam: PERRL/EOMI, eyes nml inspection ENT Exam: normal ENT inspection, hearing grossly normal Neck Exam: normal inspection, non-tender, supple, full range of motion, trachea midline Respiratory Exam: normal breath sounds, lungs clear, no respiratory distress, No chest non-tender Cardiovascular/Chest Exam: normal heart sounds, regular rate/rhythm, murmur, normal peripheral pulses Gastrointestinal/Abdominal Exam: soft, non tender, no distention, no mass, no guarding, no ecchymosis, No tenderness Rectal Exam: not done Extremity Exam: non-tender, normal range of motion, normal inspection Neurologic Exam: alert, oriented x 3, cooperative, 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 nml as tested, normal mood/affect, nml cerebellar function, nml station & gait, sensation nml Skin Exam: normal color, warm, dry Lymphatic: No adenopathy SpO2 Interpretation: normal SpO2: 97 O2 Delivery: Room Air - Course Nursing assessment & vital signs reviewed: Yes Ordered Tests: Active Orders 24 hr Category Date Time Status INFLUENZA A+B RICK Stat Lab 03/06/20 04:52 Completed Lab/Rad Data: Laboratory Results 03/06/20 03/06/20 Range/Units 04:52 04:52 Influenza Type A Ag NEGATIVE (NEGATIVE) Influenza Type B Ag NEGATIVE (NEGATIVE) Group A Strep Antibody NOT DETECTED (NEGATIVE) - Progress Progress: unchanged Counseled pt/family regarding: lab results, diagnosis, need for follow-up - Departure Departure Disposition: Home Clinical Impression: Fever Condition: Stable Critical Care Time: No Referrals: DOCTOR,NO FAMILY [Primary Care Provider] - Additional Instructions: Drink plenty of fluids. Use Tylenol and ibuprofen from muscle aches and pains and fever control. Quarantine yourself until the results of your COVID-19 test have returned.
[2020-03-06 05:07] VITALS: PULSE 77
[2020-03-06 05:13] LABS: INFLUENZA A NEGATIVE (NEGATIVE); INFLUENZA B NEGATIVE (NEGATIVE)
[2020-03-06 05:28] VITALS: O2SAT 97
[2020-03-06 05:44] VITALS: BP 120/83
== END 2020-03-06 05:42 | disposition home or self-care (01) ==
LOC: ED 04:01
DX: R50.9 Fever, unspecified (principal); I10 Essential (primary) hypertension; E11.9 Type 2 diabetes mellitus without complications; Z79.899 Other long term (current) drug therapy
CPT/HCPCS: 87400; 87651; 99283; U0003

== ENCOUNTER 2020-04-04 10:30 | Emergency (ER) | payer SELFPAY ==
[2020-04-04] MEDS ORDERED: Sodium Chloride 0.9% 1000 ML 1,000 ML IV STA (10:34)
[2020-04-04 10:50] LABS: Absolute Neutrophil Ct (ANC) 2.35 (1.4-6.9); BASOPHIL % 0.7 % (0.0-0.4); Basophil (Absolute #) 0.04 (0-0.4); Eosinophil % 1.4 % (0.00-5.0); Eosinophil (Absolute #) 0.08 (0-0.5); Hematocrit 47.9 % (42-50); Hemoglobin 16.8 gm/dl (12.5-18.0); Lymphocyte (Absolute #) 2.62 (1.0-4.6); Lymphocytes % 46.9 % (24.0-44.0); Mean Cell Volume 80.9 fl (78-100); Mean Corpuscular Hemoglobin 28.4 pg (26-32); Mean Corpuscular Hgb Concent. 35.1 g/dl (32-36); Mean Platelet Volume 10.9 fl (7.5-11.0); Monocytes % 8.9 % (0.0-12.0); Neutrophil % 42.1 % (36.0-66.0); Platelet Count 155 K/mm3 (150-450); Red Blood Count 5.92 M/mm3 (4.1-5.6); Red Cell Distribution Width 13.8 % (11.5-14.0); White Blood Count 5.6 K/mm3 (4.0-10.5)
[2020-04-04] MEDS ORDERED: Sodium Chloride 0.9% 1000 ML 1,000 ML ONE (10:52)
[2020-04-04 10:57] LABS: PROTIME 11.3 SECONDS (8.83-12.87)
[2020-04-04 11:00] LABS: PTT 27.1 SECONDS (24.1-36.1)
[2020-04-04 11:02] LABS: ALBUMIN 4.4 g/dL (3.5-5.0); ALKALINE PHOSPHATASE 112 U/L (38-126); BLOOD UREA NITROGEN 16 mg/dL (9-20); CHLORIDE 101 mmol/L (98-107); Calcium 9.5 mg/dL (8.4-10.2); Carbon Dioxide 24 mmol/L (22-30); Creatinine 1 0.78 mg/dL (0.66-1.25); EST GLOMERULAR FILTRATION RATE > 60.0 ML/MIN; Glucose 341 mg/dL (74-106); Potassium 4.4 mmol/L (3.5-5.1); SGOT/AST 30 U/L (17-59); SGPT/ALT 36 U/L (0-50); SODIUM 134 mmol/L (137-145); Total Protein 8.1 g/dL (6.3-8.2)
--- NOTE | 2020-04-04 11:03 | ERPHSYRPT ---
- History of Present Illness Time Seen by Provider: 04/04/20 10:31 Source: patient Exam Limitations: no limitations Patient Subjective Stated Complaint: Weakness Triage Nursing Assessment: Patient ambulated back to ED and transferred self to bed. Patient A+O X3. Patient's skin pink, warm and dry. Patient complains of right sided facial weakness. Patient states last night the right side of his face was tingling and when he woke up around 0600 he noticed the right side of his face was drooping and tight. Patient states he took a drink this am and it rolled out of his mouth. Patient states early he had a pain in his head above his right ear. Patient has drooping noting to right side of face. No other deficets noted. Patient denies pain or discomfort. Physician History: 44 years old male with history of hypertension, diabetes mellitus not taking any medication presented in the ER with chief complaint of right facial droop and difficulty closing eye. Patient reported last night he was talking over the phone with his friends and they noticed he had a's different speech around 6 PM. He also reported having off-and-on headache the right parietal area above the ear mild to moderate without any significant aggravating or relieving factors. Patient reports this morning he woke up and he had facial droop and was having difficulty drinking as it was drooling out from the right. Also noted more slurring of speech and tingly sensation on the right face and tongue. Denies any visual disturbance otherwise. No numbness tingling or weakness anywhere else. No chest pain palpitations or shortness of breath. Denies abdominal pain nausea vomiting. No sick contact. Did have COVID-19 in early February. Time of Onset/Last Time Seen Normal: 1800, 04/03/20 Timing/Duration: yesterday, sudden, worse Severity: moderate Character of Deficits: new weakness, altered sensation, impaired speech, Right Facial Deficits: no difficulties Baseline/Normal Cognition: alert oriented x 3 Current Cognition: alert oriented x 3 Baseline Gait: walks w/o assistance Associated Symptoms: slurred speech, headache Allergies/Adverse Reactions: No Known Drug Allergies Allergy (Verified 04/04/20 11:15) Home Medications: Losartan Potassium 50 mg [Cozaar 50 MG] 50 mg PO DAILY 10/11/13 [History] Hx Tetanus, Diphtheria Vaccination/Date Given: Yes (unknown) Hx Influenza Vaccination/Date Given: No Hx Pneumococcal Vaccination/Date Given: No Immunizations Up to Date: Yes Travel Risk - International Travel Have you traveled outside of the country in past 3 weeks: No - Coronavirus Screening Are you exhibiting any of the following symptoms?: No Close contact with a COVID-19 positive Pt in past 14-21 Days: No - Review of Systems Constitutional: No Symptoms Eyes: No Symptoms Ears, Nose, & Throat: No Symptoms Respiratory: No Symptoms Cardiac: No Symptoms Abdominal/Gastrointestinal: No Symptoms Genitourinary Symptoms: No Symptoms Musculoskeletal: No Symptoms Skin: No Symptoms Neurological: Headache, Sensory Changes, Speech Changes Psychological: No Symptoms Endocrine: No Symptoms Hematologic/Lymphatic: No Symptoms Immunological/Allergic: No Symptoms - Past Medical History Pertinent Past Medical History: Yes Neurological History: No Pertinent History ENT History: Other Cardiac History: Hypertension Respiratory History: Asthma Endocrine Medical History: Diabetes Type II Musculoskeletal History: No Pertinent History GI Medical History: Diverticulosis, GERD History: No Pertinent History Psycho-Social History: No Pertinent History Male Reproductive Disorders: No Pertinent History Other Medical History: COLONOSCOPY - Past Surgical History Past Surgical History: Yes Neuro Surgical History: No Pertinent History Cardiac: Cardiac Catheterization Respiratory: No Pertinent History Gastrointestinal: Cholecystectomy Genitourinary: No Pertinent History Musculoskeletal: No Pertinent History, Orthopedic Surgery Male Surgical History: No Pertinent History Other Surgical History: EYE SURGERY X9,shoulder x2 - Social History Smoking Status: Never smoker Exposure to second hand smoke: Yes Drug Use: none Patient Lives Alone: No - Nursing Vital Signs Nursing Vital Signs: Initial Vital Signs Temperature 98.3 F 04/04/20 10:30 Pulse Rate 87 04/04/20 10:30 Respiratory Rate 18 04/04/20 10:30 Blood Pressure 159/66 04/04/20 10:30 O2 Sat by Pulse Oximetry 97 04/04/20 10:30 Pain Scale Pain Intensity 3 - Himrod Coma Scale Best Eye Response (Himrod): (4) open spontaneously Best Verbal Response (Himrod): (5) oriented Best Motor Response (Himrod): (6) obeys commands Himrod Total: 15 - Physical Exam General Appearance: no apparent distress, alert Eye Exam: left eye: other (Unable to fully close), bilateral eye: normal inspection, PERRL, EOMI Ears, Nose, Throat Exam: normal ENT inspection, TMs normal, pharynx normal Neck Exam: normal inspection, non-tender, supple, full range of motion Respiratory: normal breath sounds, lungs clear Cardiovascular: regular rate/rhythm, normal heart sounds Gastrointestinal: soft, normal bowel sounds, tenderness Back Exam: normal inspection, normal range of motion Extremity Exam: normal inspection, normal range of motion, pelvis stable Mental Status: alert, oriented x 3, 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 1123; rate 82, sinus rhythm, normal axis, no ST elevation, ) Ordered Tests: Active Orders 24 hr Category Date Time Status [employer] STAT Care 04/04/20 10:36 Active EKG-ER Only STAT Care 04/04/20 10:34 Active IV Insertion STAT Care 04/04/20 10:34 Active NPO (ED) STAT Care 04/04/20 10:34 Active POCT Glucose Check STAT Care 04/04/20 10:34 Active CHEST 1 VIEW (PORTABLE) Stat Exams 04/04/20 10:35 Taken HEAD WITHOUT CONTRAST [CT] Stat Exams 04/04/20 10:35 Taken BNP [NT PRO BNP] Stat Lab 04/04/20 11:36 Completed CBC W DIFF Stat Lab 04/04/20 10:49 Completed CMP Stat Lab 04/04/20 10:49 Completed MAG [MAGNESIUM] Stat Lab 04/04/20 11:36 Completed PROTIME WITH INR Stat Lab 04/04/20 10:49 Completed PTT Stat Lab 04/04/20 10:49 Completed TROPONIN Q3H Lab 04/04/20 10:49 Completed TROPONIN Q3H Lab 04/04/20 13:45 Ordered TROPONIN Q3H Lab 04/04/20 16:45 Ordered TROPONIN Q3H Lab 04/04/20 19:45 Ordered TROPONIN Q3H Lab 04/04/20 22:45 Ordered UA W/RFX UR CULTURE Stat Lab 04/04/20 11:10 Completed Medication Summary Discontinued Medications Generic Name Dose Route Start Last Admin Trade Name Kamaljitq PRN Reason Stop Dose Admin Aspirin 324 mg 04/04/20 11:45 04/04/20 11:45 Baby Aspirin 81 Mg Chew PO 04/04/20 11:46 324 mg STAT ONE Administration Sodium Chloride 1,000 mls @ 999 mls/hr 04/04/20 10:34 04/04/20 11:58 Sodium Chloride 0.9% 1000 Ml IV 04/04/20 11:34 Infused .Q1H1M STA Infusion Sodium Chloride Confirm 04/04/20 10:52 Sodium Chloride 0.9% 1000 Ml Administered 04/04/20 10:53 Dose 1,000 mls @ ud .ROUTE .STK-MED ONE Lab/Rad Data: Laboratory Result Diagrams 04/04/20 10:49 04/04/20 10:49 Laboratory Results 04/04/20 04/04/20 04/04/20 Range/Units 11:36 11:10 10:49 WBC (4.0-10.5) K/mm3 RBC (4.1-5.6) M/mm3 Hgb (12.5-18.0) gm/dl Hct (42-50) % MCV (78-100) fl MCH (26-32) pg MCHC (32-36) g/dl RDW (11.5-14.0) % Plt Count (150-450) K/mm3 MPV (7.5-11.0) fl Gran % (36.0-66.0) % Eos # (Auto) (0-0.5) Absolute Lymphs (auto) (1.0-4.6) Absolute Monos (auto) (0.0-1.3) Lymphocytes % (24.0-44.0) % Monocytes % (0.0-12.0) % Eosinophils % (0.00-5.0) % Basophils % (0.0-0.4) % Absolute Granulocytes (1.4-6.9) Basophils # (0-0.4) PT (8.83-12.87) SECONDS INR (0.8-3.0) APTT (24.1-36.1) SECONDS Sodium (137-145) mmol/L Potassium (3.5-5.1) mmol/L Chloride (98-107) mmol/L Carbon Dioxide (22-30) mmol/L Anion Gap (5-15) MEQ/L BUN (9-20) mg/dL Creatinine (0.66-1.25) mg/dL Estimated GFR ML/MIN Glucose (74-106) mg/dL Calcium (8.4-10.2) mg/dL Magnesium 1.8 (1.6-2.3) mg/dL Total Bilirubin (0.2-1.3) mg/dL AST (17-59) U/L ALT (0-50) U/L Alkaline Phosphatase (38-126) U/L Troponin I 0.039 H* (0.000-0.034) ng/mL NT-Pro-B Natriuret Pep 49.9 (0-450) pg/mL Serum Total Protein (6.3-8.2) g/dL Albumin (3.5-5.0) g/dL Urine Color YELLOW (YELLOW) Urine Appearance CLEAR (CLEAR) Urine pH 5.0 (5-6) Ur Specific Drumore 1.031 (1.005-1.025) Urine Protein NEGATIVE (Negative) Urine Ketones NEGATIVE (NEGATIVE) Urine Blood NEGATIVE (0-5) Junior/ul Urine Nitrite NEGATIVE (NEGATIVE) Urine Bilirubin NEGATIVE (NEGATIVE) Urine Urobilinogen NEGATIVE (0-1) mg/dL Ur Leukocyte Esterase NEGATIVE (NEGATIVE) Urine WBC (Auto) NONE (0-5) /HPF Urine RBC (Auto) NONE (0-2) /HPF U Epithel Cells (Auto) NONE (FEW) /HPF Urine Bacteria (Auto) NONE (NEGATIVE) /HPF Urine Mucus (Auto) SLIGHT (NEGATIVE) /HPF Urine Culture Reflexed NO (NO) Urine Glucose >=500 (NEGATIVE) mg/dL 04/04/20 04/04/20 04/04/20 Range/Units 10:49 10:49 10:49 WBC 5.6 (4.0-10.5) K/mm3 RBC 5.92 H (4.1-5.6) M/mm3 Hgb 16.8 (12.5-18.0) gm/dl Hct 47.9 (42-50) % MCV 80.9 (78-100) fl MCH 28.4 (26-32) pg MCHC 35.1 (32-36) g/dl RDW 13.8 (11.5-14.0) % Plt Count 155 (150-450) K/mm3 MPV 10.9 (7.5-11.0) fl Gran % 42.1 (36.0-66.0) % Eos # (Auto) 0.08 (0-0.5) Absolute Lymphs (auto) 2.62 (1.0-4.6) Absolute Monos (auto) 0.50 (0.0-1.3) Lymphocytes % 46.9 H (24.0-44.0) % Monocytes % 8.9 (0.0-12.0) % Eosinophils % 1.4 (0.00-5.0) % Basophils % 0.7 (0.0-0.4) % Absolute Granulocytes 2.35 (1.4-6.9) Basophils # 0.04 (0-0.4) PT 11.3 (8.83-12.87) SECONDS INR 1.00 (0.8-3.0) APTT 27.1 (24.1-36.1) SECONDS Sodium 134 L (137-145) mmol/L Potassium 4.4 (3.5-5.1) mmol/L Chloride 101 (98-107) mmol/L Carbon Dioxide 24 (22-30) mmol/L Anion Gap 13.0 (5-15) MEQ/L BUN 16 (9-20) mg/dL Creatinine 0.78 (0.66-1.25) mg/dL Estimated GFR > 60.0 ML/MIN Glucose 341 H (74-106) mg/dL Calcium 9.5 (8.4-10.2) mg/dL Magnesium (1.6-2.3) mg/dL Total Bilirubin 1.00 (0.2-1.3) mg/dL AST 30 (17-59) U/L ALT 36 (0-50) U/L Alkaline Phosphatase 112 (38-126) U/L Troponin I (0.000-0.034) ng/mL NT-Pro-B Natriuret Pep (0-450) pg/mL Serum Total Protein 8.1 (6.3-8.2) g/dL Albumin 4.4 (3.5-5.0) g/dL Urine Color (YELLOW) Urine Appearance (CLEAR) Urine pH (5-6) Ur Specific Drumore (1.005-1.025) Urine Protein (Negative) Urine Ketones (NEGATIVE) Urine Blood (0-5) Junior/ul Urine Nitrite (NEGATIVE) Urine Bilirubin (NEGATIVE) Urine Urobilinogen (0-1) mg/dL Ur Leukocyte Esterase (NEGATIVE) Urine WBC (Auto) (0-5) /HPF Urine RBC (Auto) (0-2) /HPF U Epithel Cells (Auto) (FEW) /HPF Urine Bacteria (Auto) (NEGATIVE) /HPF Urine Mucus (Auto) (NEGATIVE) /HPF Urine Culture Reflexed (NO) Urine Glucose (NEGATIVE) mg/dL - Progress Progress: unchanged, re-examined Progress Note: 04/04/20 12:24 Patient is made stroke activate, prompt CT head is obtained which is negative for intracranial bleed, obvious ischemic changes. EKG showed sinus rhythm with no acute ST elevation and have repeated EKG which is negative as well. I have o btained [facility] tele neuro consult, recommended aspirin and MRI without contrast as CT has some suspicion for lesion in the stacy which needs to be evaluated. 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 Is given full dose aspirin. Initial troponins are mildly elevated 0.039, patient report he occasionally have right-sided chest pain but denies any chest pain today. No difficulty breathing. Chest x-ray showed mild congestion but no infiltrative process. Has normal white count and chemistry profile showed elevated blood glucose but otherwise negative. Do not have MRI services available over the weekend and patient needs emergent MRI, also need evaluation for elevated troponin, discussed with Dr. Colmenares at [facility] and patient is accepted for transfer. Plan discussed with patient who understand and agrees with it. Discussed with Dr.: Other (Dedra MÉNDEZ ) Counseled pt/family regarding: diagnosis, rad results - Departure Departure Disposition: Transfer Clinical Impression: Stroke-like symptom, Elevated troponin, Hyperglycemia Condition: Stable Critical Care Time: Yes Critical Care Time(excluding separately billable procedures): Critical 30-74 mins Referrals: DOCTOR,NO FAMILY [Primary Care Provider] -
[2020-04-04] MEDS ORDERED: BABY ASPIRIN 81 MG CHEW PO ONE (11:45)
[2020-04-04 11:54] LABS: Appearance CLEAR (CLEAR); Bilirubin NEGATIVE (NEGATIVE); Blood NEGATIVE Ery/ul (0-5); Glucose >=500 mg/dL (NEGATIVE); Ketones NEGATIVE (NEGATIVE); Leukocyte Esterase NEGATIVE (NEGATIVE); Mucus SLIGHT /HPF (NEGATIVE); Nitrite NEGATIVE (NEGATIVE); Protein,Urine Dip NEGATIVE (Negative); Specific Gravity 1.031 (1.005-1.025); Urobilinogen NEGATIVE mg/dL (0-1)
[2020-04-04 12:04] LABS: MAGNESIUM 1.8 mg/dL (1.6-2.3); NT PRO BNP 49.9 pg/mL (0-450)
[2020-04-04 12:51] VITALS: BP 147/85; PULSE 70; O2SAT 95
--- NOTE | 2020-04-04 15:49 | XRAY ---
Indication: Right facial drooping and pain. Multiple contiguous axial images obtained through the head without contrast. Comparison: October 08, 2013. Normal appearing brain parenchyma, ventricles, and bony calvarium. Visualized paranasal sinuses and mastoid air cells are clear. Impression: Continued normal CT head without contrast exam. Comment: Preliminary interpretation was made by [facility]. No critical discrepancy.
--- NOTE | 2020-04-04 15:50 | XRAY ---
Indication: Right facial drooping. Comparison: April 16, 2019. Portable chest demonstrates minimal left base subsegmental atelectasis/scarring. Remaining heart and lungs unremarkable. Bony thorax intact.
== END 2020-04-04 13:18 | disposition short-term general hospital (02) ==
LOC: ED 10:30
DX: R29.810 Facial weakness (principal); R29.898 Other symptoms and signs involving the musculoskeletal system; R74.8 Abnormal levels of other serum enzymes; E11.65 Type 2 diabetes mellitus with hyperglycemia; I10 Essential (primary) hypertension; K21.9 Gastro-esophageal reflux disease without esophagitis
CPT/HCPCS: 36000; 36415; 70450; 71045; 80053; 81001; 83735; 83880; 84484; 85025; 85610; 85730; 93005; 93041; 96360; 99285; 99291; A9270-GY

== ENCOUNTER 2021-05-23 11:29 | Emergency (ER) | payer MEDICAID, OTHER ==
[2021-05-23] MEDS ORDERED: Norflex 60 MG/2 ML IM ONE (11:56)
[2021-05-23] MEDS ORDERED: TORAdol 30 mg Injection IM ONE (11:56)
[2021-05-23] MEDS ORDERED: TORAdol 30 mg Injection ONE (11:57)
[2021-05-23] MEDS ORDERED: Norflex 60 MG/2 ML ONE (11:57)
[2021-05-23] MEDS ORDERED: MORPHINE SULFATE 4 MG INJ IM ONE (13:02)
[2021-05-23] MEDS ORDERED: MORPHINE SULFATE 4 MG INJ ONE (13:05)
[2021-05-23] MEDS ORDERED: Hydromorphone 1 mg/ml Injection IM ONE (14:18)
[2021-05-23] MEDS ORDERED: Hydromorphone 1 mg/ml Injection ONE (14:21)
--- NOTE | 2021-05-23 14:37 | ERPHSYRPT ---
- History of Present Illness Time Seen by Provider: 05/23/21 11:32 Source: patient Exam Limitations: no limitations Patient Subjective Stated Complaint: Pt bent over to sampler pickup something on Monday and felt a sharp pain in his lower left back that has hurt since then but the pain has been dull since then and then today pt bent over again and and when he stood up he had another sharp pain in the same spot that has not went away Triage Nursing Assessment: Pt drove self to the ER but states he can find a ride home if needed, hypertensive, rates back pain as 10/10, denies pain to back with palpatation, pain with movement, denies previous injury, denies any previous back issues Physician History: 45 years old male presented in the ER with chief complaint of left lower back pain sudden onset when he bent over 3 days ago, started to feel a little better the next day but he bent over again to sampler pickup some stuff and pain got worse. Moderate to severe sharp, radiating to left hip without any numbness tingling or weakness of lower extremity. No loss of bowel or bladder control or perineal numbness. Denies any midline back pain but pain more in the left sacroiliac area. Timing/Duration: day(s) (3), sudden, worse Method of Injury: bending Quality: sharp Back Pain Location: lumbar spine, paraspinous muscles Back Pain Radiation: buttocks Severity of Pain-Max: severe Severity of Pain-Current: severe Modifying Factors: Improves With: rest. Worsens With: movement Associated Symptoms: lower back pain, muscle spasms, No fever, No chills, No sweating, No urinary incontinence, No loss of bowel control, No constipation, No problems urinating, No dizziness, No numbness in legs/feet, No weakness, No sensory/motor loss, No tingling in legs/feet Previous symptoms: no prior history Allergies/Adverse Reactions: No Known Drug Allergies Allergy (Verified 05/23/21 11:52) Home Medications: Losartan Potassium 50 mg [Cozaar 50 MG] 50 mg PO DAILY 10/11/13 [History] Metformin HCl 500 mg [Glucophage 500 MG] 500 mg PO DAILY 05/23/21 [History] Hx Tetanus, Diphtheria Vaccination/Date Given: Yes (unknown) Hx Influenza Vaccination/Date Given: No Hx Pneumococcal Vaccination/Date Given: No Travel Risk - International Travel Have you traveled outside of the country in past 3 weeks: No - Coronavirus Screening Are you exhibiting any of the following symptoms?: No Close contact with a COVID-19 positive Pt in past 14-21 Days: No - Vaccine Status Have you recieved a Covid-19 vaccination: Yes [place]: Moderna - Vaccination Dates Date of 2cond Vaccination (if applicable): 12/2020 - Review of Systems Constitutional: No Symptoms Eyes: No Symptoms Ears, Nose, & Throat: No Symptoms Respiratory: No Symptoms Cardiac: No Symptoms Abdominal/Gastrointestinal: No Symptoms Genitourinary Symptoms: No Symptoms Musculoskeletal: Back Pain Skin: No Symptoms Neurological: No Symptoms Psychological: No Symptoms Endocrine: No Symptoms Hematologic/Lymphatic: No Symptoms Immunological/Allergic: No Symptoms - Past Medical History Pertinent Past Medical History: Yes Neurological History: No Pertinent History ENT History: Other Cardiac History: Hypertension Respiratory History: No Pertinent History Endocrine Medical History: No Pertinent History Musculoskeletal History: No Pertinent History GI Medical History: Diverticulosis, GERD History: No Pertinent History Psycho-Social History: No Pertinent History Male Reproductive Disorders: No Pertinent History Other Medical History: NO PRIOR INJURIES TO THE L SHOULDER, R RTC SURGERY. L TENNIS ELBOW CURRENTLY. - Past Surgical History Past Surgical History: Yes Neuro Surgical History: No Pertinent History Cardiac: Cardiac Catheterization Respiratory: No Pertinent History Gastrointestinal: Cholecystectomy Genitourinary: No Pertinent History Musculoskeletal: No Pertinent History, Orthopedic Surgery Male Surgical History: No Pertinent History Other Surgical History: EYE SURGERY X9,shoulder x2 - Social History Smoking Status: Never smoker Exposure to second hand smoke: Yes Drug Use: none Patient Lives Alone: Yes - Nursing Vital Signs Nursing Vital Signs: Initial Vital Signs Temperature 97.1 F 05/23/21 11:42 Pulse Rate 94 H 05/23/21 11:42 Blood Pressure 165/105 05/23/21 11:42 O2 Sat by Pulse Oximetry 97 05/23/21 11:42 Pain Scale Pain Intensity [Left Distal 10 Back] Pain Intensity 7 - Physical Exam General Appearance: no apparent distress, alert Eye Exam: PERRL/EOMI Ears, Nose, Throat Exam: normal ENT inspection Neck Exam: normal inspection, full range of motion Respiratory Exam: normal breath sounds, accessory muscle use Cardiovascular Exam: regular rate/rhythm, normal heart sounds Gastrointestinal Exam: soft, normal bowel sounds, No tenderness Back Exam: normal inspection, normal range of motion, muscle spasm, point tenderness (Left sacroiliac area), No CVA tenderness, No vertebral tenderness Extremity Exam: normal inspection, normal range of motion, pelvis stable Neurologic Exam: alert, oriented x 3, cooperative Skin Exam: normal color SpO2 Interpretation: normal SpO2: 96 O2 Delivery: Room Air Ordered Tests: Active Orders 24 hr Category Date Time Status LUMBAR SPINE W/O [CT] Stat Exams 05/23/21 13:41 Taken Medication Summary Discontinued Medications Generic Name Dose Route Start Last Admin Trade Name Kamaljitq PRN Reason Stop Dose Admin Hydromorphone HCl 1 mg 05/23/21 14:18 05/23/21 14:26 Hydromorphone 1 Mg/1ml Inj 1 Mg/Ml Syringe IM 05/23/21 14:19 1 mg STAT ONE Administration Hydromorphone HCl Confirm 05/23/21 14:21 Hydromorphone 1 Mg/1ml Inj 1 Mg/Ml Syringe Administered 05/23/21 14:22 Dose 1 mg .ROUTE .STK-MED ONE Ketorolac Tromethamine 30 mg 05/23/21 11:56 05/23/21 12:00 Ketorolac Tromethamine 30 Mg/Ml Inj IM 05/23/21 11:57 30 mg STAT ONE Administration Ketorolac Tromethamine Confirm 05/23/21 11:57 Ketorolac Tromethamine 30 Mg/Ml Inj Administered 05/23/21 11:58 Dose 30 mg .ROUTE .STK-MED ONE Lidocaine 1 patch 05/23/21 14:41 05/23/21 14:46 Lidocaine Hcl 1 Patch Patch TOP 05/23/21 14:42 1 patch STAT ONE Administration Morphine Sulfate 4 mg 05/23/21 13:02 05/23/21 13:10 Morphine Sulfate 4 Mg/Ml Injection IM 05/23/21 13:03 4 mg STAT ONE Administration Morphine Sulfate Confirm 05/23/21 13:05 Morphine Sulfate 4 Mg/Ml Injection Administered 05/23/21 13:06 Dose 4 mg .ROUTE .STK-MED ONE Orphenadrine Citrate 60 mg 05/23/21 11:56 05/23/21 12:01 Orphenadrine Citrate 60 Mg/2 Ml Amp IM 05/23/21 11:57 60 mg STAT ONE Administration Orphenadrine Citrate Confirm 05/23/21 11:57 Orphenadrine Citrate 60 Mg/2 Ml Amp Administered 05/23/21 11:58 Dose 60 mg .ROUTE .STK-MED ONE Triamcinolone Acetonide 40 mg 05/23/21 15:15 05/23/21 15:16 Triamcinolone Acetonide 40 Mg/Ml Ml IM 05/23/21 15:16 40 mg STAT ONE Administration Triamcinolone Acetonide Confirm 05/23/21 15:14 Triamcinolone Acetonide 40 Mg/Ml Ml Administered 05/23/21 15:15 Dose 40 mg .ROUTE .STK-MED ONE - Progress Progress: improved Progress Note: 05/23/21 14:34 45 years old is evaluated for low back pain. Does not have any midline back pain, given nonnarcotics followed by narcotic pain medication along with muscle relaxant and pain is better. Obtain CT lumbar spine which is negative for any acute fracture/subluxation or retropulsion. Negative neuro exam lower extremities. I believe patient has muscle spasms. given a steroid shot as well. Recommended NSAIDs and muscle relaxant to go home and outpatient follow-up. Discussed signs symptoms of worsening needing return to ER which he seems understanding. 05/23/21 15:42 Counseled pt/family regarding: diagnosis, need for follow-up, rad results - Departure Departure Disposition: Home Clinical Impression: Low back strain Condition: Stable Critical Care Time: No Referrals: DOCTOR,NO FAMILY [Primary Care Provider] - Follow up/PCP as directed XIAO - ENRRIQUE TRAN NP [NON-STAFF PHY W/O PRIVILEGES] - Follow up/PCP as directed (Call tomorrow for reevaluation) Instructions: Low Back Pain (DC) Additional Instructions: Take pain medications along with muscle relaxants. Follow-up with primary care/orthopedics for reevaluation. Return to ER for intractable pain, numbness tingling weakness of lower extremities/loss of bowel or bladder control/perineal numbness. Avoid exertional activities. Prescriptions: Ibuprofen 600 mg PO Q6HPRN PRN 10 Days #20 tablet PRN Reason: Pain Cyclobenzaprine HCl 10 mg [Flexeril 10 MG] 10 mg PO TID #20 tablet
[2021-05-23] MEDS ORDERED: Lidoderm Patch 5% TOP ONE (14:41)
[2021-05-23 15:04] VITALS: BP 145/100; PULSE 85
[2021-05-23] MEDS ORDERED: Kenalog-40 ONE (15:14)
[2021-05-23] MEDS ORDERED: Kenalog-40 IM ONE (15:15)
[2021-05-23 15:43] VITALS: O2SAT 96
--- NOTE | 2021-05-23 19:37 | XRAY ---
Indication: Left low back pain after picking up dog. Multiple contiguous axial images obtained through the lumbar spine. Sagittal and coronal reformatted images obtained. Comparison: March 05, 2020. Axial images negative for acute fracture, suspicious bony lesions, or spinal canal stenosis. There remains mild L5-S1 broad-based disc osteophyte complex with bilateral foraminal narrowing. No obvious disc herniation. Facets are symmetric. Sagittal and coronal reformatted images again demonstrate normal alignment with vertebral body heights/disc space is maintained. Visualized noncontrasted soft tissues demonstrates minimal aortoiliac calcifications. Impression: Stable L5-S1 degenerative disc better evaluated with outpatient MRI if clinically warranted. Remaining CT lumbar spine without contrast exam is negative. Comment: Preliminary interpretation made by [facility]. No critical discrepancy.
== END 2021-05-23 15:35 | disposition home or self-care (01) ==
LOC: ED 11:29
DX: S39.012A Strain of muscle, fascia and tendon of lower back, initial encounter (principal); X50.1XXA Overexertion from prolonged static or awkward postures, initial encounter; M62.830 Muscle spasm of back; I10 Essential (primary) hypertension; K21.9 Gastro-esophageal reflux disease without esophagitis; Z79.899 Other long term (current) drug therapy
CPT/HCPCS: 72131; 96372; 99284; J1170; J1885; J2270; J2360; J3301; A9270-GY

== ENCOUNTER 2022-07-15 13:14 | Emergency (ER) | payer MEDICAID ==
--- NOTE | 2022-07-15 13:58 | ERPHSYRPT ---
- History of Present Illness Time Seen by Provider: 07/15/22 13:30 Source: patient Exam Limitations: no limitations Patient Subjective Stated Complaint: C/O pain with a deep breath following an injury at work on Monday. Patient states he was hit in the chest on Monday ev ening with a pin from a 2000 lbs tailgate from a semi-truck. Triage Nursing Assessment: Patient ambulated back to ER. No SOB. No cough. He is alert and oriented. Tattoo noted to chest but no swelling, bruising, or skin alterations. Patient unable to deep breath related to pain. Physician History: This is a 46-year-old white male who has a history of hypertension and presents to the emergency department with anterior chest wall pain after a chest injury that occurred on 07/12/2022. Patient was at work when a portion of a 2000 pound tailgate from a semitruck flew off of the back of the truck and hit the patient centrally in the chest where he is having persistent pain. The pain is worse with deep inspiration. Patient thought that the pain would improve but it has not. Timing/Duration: day(s) (3) Severity: moderate Associated Symptoms: chest pain (Chest wall anteriorly), No abdominal pain, No shortness of breath, No weakness Allergies/Adverse Reactions: No Known Drug Allergies Allergy (Verified 07/15/22 13:22) Home Medications: Losartan Potassium 50 mg [Cozaar 50 MG] 50 mg PO DAILY 10/11/13 [History] Hx Tetanus, Diphtheria Vaccination/Date Given: Yes Hx Influenza Vaccination/Date Given: Yes Hx Pneumococcal Vaccination/Date Given: Yes Immunizations Up to Date: Yes Travel Risk - International Travel Have you traveled outside of the country in past 3 weeks: No - Coronavirus Screening Are you exhibiting any of the following symptoms?: No Close contact with a COVID-19 positive Pt in past 14-21 Days: No - Vaccine Status Have you recieved a Covid-19 vaccination: Yes 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 - Review of Systems Constitutional: No Symptoms Eyes: No Symptoms Ears, Nose, & Throat: No Symptoms Respiratory: No Symptoms Cardiac: Chest Pain (Anterior chest wall pain) Abdominal/Gastrointestinal: No Symptoms Genitourinary Symptoms: No Symptoms Musculoskeletal: No Symptoms Skin: No Symptoms Neurological: No Symptoms Psychological: No Symptoms Endocrine: No Symptoms Hematologic/Lymphatic: No Symptoms Immunological/Allergic: No Symptoms All Other Systems: Reviewed and Negative - Past Medical History Pertinent Past Medical History: Yes Neurological History: No Pertinent History ENT History: Other Cardiac History: Hypertension Respiratory History: No Pertinent History Endocrine Medical History: No Pertinent History Musculoskeletal History: No Pertinent History GI Medical History: Diverticulosis, GERD, Gallbladder Disease History: No Pertinent History Psycho-Social History: No Pertinent History Male Reproductive Disorders: No Pertinent History Other Medical History: NO PRIOR INJURIES TO THE L SHOULDER, R RTC SURGERY. L TENNIS ELBOW CURRENTLY. - Past Surgical History Past Surgical History: Yes Neuro Surgical History: No Pertinent History Cardiac: Cardiac Catheterization Respiratory: No Pertinent History Gastrointestinal: Cholecystectomy Genitourinary: No Pertinent History Musculoskeletal: No Pertinent History, Orthopedic Surgery Male Surgical History: No Pertinent History Other Surgical History: EYE SURGERY X9,shoulder x2 - Social History Smoking Status: Never smoker Exposure to second hand smoke: Yes Drug Use: none Patient Lives Alone: Yes - Nursing Vital Signs Nursing Vital Signs: Initial Vital Signs Temperature 97.6 F 07/15/22 13:23 Pulse Rate 82 07/15/22 13:23 Respiratory Rate 21 07/15/22 13:23 Blood Pressure 132/101 07/15/22 13:23 O2 Sat by Pulse Oximetry 99 07/15/22 13:23 Pain Scale Pain Intensity [Chest] 9 Pain Intensity 9 - Physical Exam General Appearance: no apparent distress, alert, anxiety Eye Exam: PERRL/EOMI, eyes nml inspection Ears, Nose, Throat Exam: normal ENT inspection, moist mucous membranes Neck Exam: normal inspection, non-tender, supple, full range of motion Respiratory Exam: normal breath sounds, chest tenderness (Anterior chest wall pain), lungs clear, airway intact, No respiratory distress Cardiovascular Exam: regular rate/rhythm, normal heart sounds, normal peripheral pulses Gastrointestinal/Abdomen Exam: soft, normal bowel sounds, No tenderness Rectal Exam: not done Back Exam: normal inspection, normal range of motion, No CVA tenderness, No vertebral tenderness Extremity Exam: normal inspection, normal range of motion, pelvis stable Neurologic Exam: alert, oriented x 3, 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, 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, normal mood/affect, nml cerebellar function, nml station & gait, sensation nml Skin Exam: normal color, warm, dry Lymphatic Exam: No adenopathy SpO2 Interpretation: normal SpO2: 99 O2 Delivery: Room Air - Course Nursing assessment & vital signs reviewed: Yes EKG Interpreted by Me: RATE (81), Sinus Rhythm, NORMAL AXIS, NORMAL INTERVALS, NORMAL QRS, NORMAL ST-T, Other (No acute ischemic changes on today's twelve-lead EKG.) Ordered Tests: Active Orders 24 hr Category Date Time Status Adjustment Supervisor STAT Care 07/15/22 13:36 Active EKG-ER Only STAT Care 07/15/22 13:36 Active IV Insertion STAT Care 07/15/22 13:36 Active Pulse Oximetry (ED) STAT Care 07/15/22 13:36 Active CHEST WITHOUT CONTRAST [CT] Stat Exams 07/15/22 13:37 Taken BMP Stat Lab 07/15/22 14:18 Completed CBC W DIFF Stat Lab 07/15/22 14:18 Completed TROPONIN Q4H Lab 07/15/22 14:18 Completed TROPONIN Q4H Lab 07/15/22 17:45 Ordered TROPONIN Q4H Lab 07/15/22 21:45 Ordered Medication Summary Discontinued Medications Generic Name Dose Route Start Last Admin Trade Name Freq PRN Reason Stop Dose Admin Morphine Sulfate 4 mg 07/15/22 15:15 Morphine Sulfate 4 Mg/Ml Injection IV 07/15/22 15:16 STAT ONE Ondansetron HCl 4 mg 07/15/22 15:15 Ondansetron Hcl 4 Mg/2 Ml Vial IV 07/15/22 15:16 STAT ONE Lab/Rad Data: Laboratory Result Diagrams 07/15/22 14:18 07/15/22 14:18 Laboratory Results 07/15/22 07/15/22 07/15/22 Range/Units 14:18 14:18 14:18 WBC 5.5 (4.0-10.5) x10^3/uL RBC 5.39 (4.1-5.6) x10^6/uL Hgb 15.5 (12.5-18.0) g/dL Hct 43.9 (42-50) % MCV 81.4 (78-100) fL MCH 28.8 (26-32) pg MCHC 35.3 (32-36) g/dL RDW 12.2 (11.5-14.0) % Plt Count 185 (150-450) x10^3/uL MPV 10.0 (7.5-11.0) fL Gran % 42.6 (36.0-66.0) % Immature Gran % (Auto) 0.2 (0.00-0.4) % Nucleat RBC Rel Count 0.0 (0.00-0.1) % Eos # (Auto) 0.04 (0-0.5) x10^3/uL Immature Gran # (Auto) 0.01 (0.00-0.03) x10^3u/L Absolute Lymphs (auto) 2.65 (1.0-4.6) x10^3/uL Absolute Monos (auto) 0.40 (0.0-1.3) x10^3/uL Absolute Nucleated RBC 0.00 (0.00-0.01) x10^3u/L Lymphocytes % 48.6 H (24.0-44.0) % Monocytes % 7.3 (0.0-12.0) % Eosinophils % 0.7 (0.00-5.0) % Basophils % 0.6 (0.0-0.4) % Absolute Granulocytes 2.32 (1.4-6.9) x10^3/uL Basophils # 0.03 (0-0.4) x10^3/uL Sodium 135 L (137-145) mmol/L Potassium 3.9 (3.5-5.1) mmol/L Chloride 102 (98-107) mmol/L Carbon Dioxide 23 (22-30) mmol/L Anion Gap 14.3 (5-15) MEQ/L BUN 16 (9-20) mg/dL Creatinine 0.69 (0.66-1.25) mg/dL Estimated GFR > 60.0 ML/MIN Glucose 343 H (74-106) mg/dL Calcium 8.9 (8.4-10.2) mg/dL Troponin I < 0.012 (0.000-0.034) ng/mL - Progress Progress: improved, pain not gone completely, re-examined Progress Note: 07/15/22 15:37 CT scan of the chest without contrast shows no acute abnormality in the intrathoracic cavity. There is no evidence of any bony abnormality. 07/15/22 15:38 This patient's medical issue is 1 of moderate complexity. The level of complexity and the work-up performed based on the patient's past medical history, review of the patient's medication list, review of the patient's drug allergy list, history of present illness and findings on examination. The work- up includes placement of an intravenous line, obtaining CBC, CMP, troponin lev el, twelve-lead EKG and a CT scan of the chest without contrast. I reviewed the results of the studies. I discussed the results with the patient. Patient had blunt trauma to the chest 3 days ago. There is no acute findings at this time. We will discharge at home with instructions to use an ice pack to the tender areas and for him to use ibuprofen medication and I will write for Percocet 5/325 for couple of days. Counseled pt/family regarding: lab results, diagnosis, need for follow-up, rad results Medical Desision Making - Discussion of managment Reviewed:: Test results Agreed on:: Treatment plan - Diagnostic Testing Diagnostic test were ordered, analyzed, and reviewed by me: Yes Radiological Interpretation: Reviewed by me, Teleradiologist Report - Risk of complications The pt has a mod risk of morbidity or mortality based on: Need for prescription drug management - Departure Departure Disposition: Home Clinical Impression: Low-energy blunt traumatic injury of chest Condition: Stable Critical Care Time: No Additional Instructions: Ice pack to area 3 times a day for the next 48 hours. May use ibuprofen 600 mg orally with food 3 times a day for the next 5 days. Take your medications as prescribed. Follow-up with your primary care physician in 5 to 7 days if symptoms have not improved. Prescriptions: Oxycodone HCl/Acetaminophen [Percocet 5-325 mg Tablet] 1 each PO Q8H PRN PRN #6 tablet MDD 3 PRN Reason: Moderate To Severe Pain
[2022-07-15 14:19] LABS: Absolute Neutrophil Ct (ANC) 2.32 x10^3/uL (1.4-6.9); BASOPHIL % 0.6 % (0.0-0.4); Basophil (Absolute #) 0.03 x10^3/uL (0-0.4); Eosinophil % 0.7 % (0.00-5.0); Eosinophil (Absolute #) 0.04 x10^3/uL (0-0.5); Hematocrit 43.9 % (42-50); Hemoglobin 15.5 g/dL (12.5-18.0); IMMATURE GRAN # 0.01 x10^3u/L (0.00-0.03); IMMATURE GRAN % 0.2 % (0.00-0.4); Lymphocyte (Absolute #) 2.65 x10^3/uL (1.0-4.6); Lymphocytes % 48.6 % (24.0-44.0); Mean Cell Volume 81.4 fL (78-100); Mean Corpuscular Hemoglobin 28.8 pg (26-32); Mean Corpuscular Hgb Concent. 35.3 g/dL (32-36); Monocytes % 7.3 % (0.0-12.0); Neutrophil % 42.6 % (36.0-66.0); Platelet Count 185 x10^3/uL (150-450); Red Blood Count 5.39 x10^6/uL (4.1-5.6); Red Cell Distribution Width 12.2 % (11.5-14.0); White Blood Count 5.5 x10^3/uL (4.0-10.5)
[2022-07-15 14:32] LABS: ANION GAP 14.3 MEQ/L (5-15); BLOOD UREA NITROGEN 16 mg/dL (9-20); CHLORIDE 102 mmol/L (98-107); Calcium 8.9 mg/dL (8.4-10.2); Carbon Dioxide 23 mmol/L (22-30); Creatinine 1 0.69 mg/dL (0.66-1.25); EST GLOMERULAR FILTRATION RATE > 60.0 ML/MIN; Glucose 343 mg/dL (74-106); Potassium 3.9 mmol/L (3.5-5.1); SODIUM 135 mmol/L (137-145)
[2022-07-15] MEDS ORDERED: MORPHINE SULFATE 4 MG INJ IV ONE (15:15)
[2022-07-15] MEDS ORDERED: Zofran 4 MG/2 ML VIAL IV ONE (15:15)
[2022-07-15 15:49] VITALS: BP 126/81; PULSE 80; O2SAT 98
--- NOTE | 2022-07-15 15:56 | XRAY ---
CLINICAL HISTORY:Chest trauma, hit mid-chest with door 3 days ago, painful inspiration. COMPARISON:04/16/2019. TECHNIQUES:Contiguous axial CT images of the chest were acquired without the administration of intravenous contrast. Coronal and sagittal reconstructions were obtained. FINDINGS: Both lungs appear clear. No evidence of lung contusions or consolidation is seen. No evidence of pleural effusion is seen on either side. No evidence of pneumothorax. Heart size is normal, and there is no pericardial effusion. No pathologically enlarged axillary lymph node was identified. There is no definite mass lesion in the chest wall. Degenerative changes are seen in the visualized spine no other bony abnormality is detected. No obvious fracture is seen. Redemonstration of fatty changes in the liver. Gallbladder is not visualized, metallic clips noted in the GB fossa, findings suggesting cholecystectomy. The rest of the scanned upper abdomen is unremarkable. IMPRESSION: 1. No gross lung abnormality. 2. No evidence of fracture or lung pathology. 3. Redemonstration of fatty changes in the liver. 4. No gross interval change. Electronically Signed by: French Fung MD. (07/15/2022 13:54:22 [address])
== END 2022-07-15 15:53 | disposition home or self-care (01) ==
LOC: ED 13:14
DX: S29.8XXA Other specified injuries of thorax, initial encounter (principal); W22.8XXA Striking against or struck by other objects, initial encounter; Y99.0 Civilian activity done for income or pay; I10 Essential (primary) hypertension; Z79.891 Long term (current) use of opiate analgesic; Z79.899 Other long term (current) drug therapy
CPT/HCPCS: 36415; 71250; 80048; 84484; 85025; 93005; 93041; 94760; 99284

== ENCOUNTER 2022-07-19 08:47 | Emergency (ER) | payer MEDICAID, OTHER ==
--- NOTE | 2022-07-19 08:50 | ERPHSYRPT ---
- History of Present Illness Time Seen by Provider: 07/19/22 08:50 Historian: patient Exam Limitations: no limitations Physician History: This is a 46-year-old white male who presents to the emergency department with anterior chest pain. Patient was here on 07/15/2022 and was seen by me and had a full work-up including twelve-lead EKG troponin level and D-dimer as well as CT of the chest. The patient had blunt trauma to his chest anteriorly. He was given a prescription for Percocet 5/325. He is out of his pain medicine. He is still having significant pain. He is not short of breath. I reviewed the results of the CT scan of the chest without contrast from 07/15/2022. There were no gross bony or thoracic abnormalities. There were no gross lung abnormalitie s. Quality: aching Location: substernal, central Chest Pain Radiation: no radiation Severity of Pain-Max: moderate Severity of Pain-Current: moderate Associated Symptoms: hurts to breathe Prior Chest Pain/Cardiac Workup: cardiac cath Nitro Today/Relief: no nitro taken today Aspirin Treatment Today: no aspirin today Allergies/Adverse Reactions: No Known Drug Allergies Allergy (Verified 07/19/22 08:55) Home Medications: Losartan Potassium 50 mg [Cozaar 50 MG] 50 mg PO DAILY 10/11/13 [History] Hx Tetanus, Diphtheria Vaccination/Date Given: Yes Hx Influenza Vaccination/Date Given: Yes Hx Pneumococcal Vaccination/Date Given: Yes Travel Risk - International Travel Have you traveled outside of the country in past 3 weeks: No - Coronavirus Screening Are you exhibiting any of the following symptoms?: No Close contact with a COVID-19 positive Pt in past 14-21 Days: No - Vaccine Status Have you recieved a Covid-19 vaccination: Yes 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 - Review of Systems Constitutional: No Symptoms Eyes: No Symptoms Ears, Nose, & Throat: No Symptoms Respiratory: No Symptoms Cardiac: Other (Anterior chest wall pain secondary to trauma) Abdominal/Gastrointestinal: No Symptoms Genitourinary Symptoms: No Symptoms Musculoskeletal: No Symptoms Skin: No Symptoms Neurological: No Symptoms Psychological: No Symptoms Endocrine: No Symptoms Hematologic/Lymphatic: No Symptoms Immunological/Allergic: No Symptoms All Other Systems: Reviewed and Negative - Past Medical History Pertinent Past Medical History: Yes Neurological History: No Pertinent History ENT History: Other Cardiac History: Hypertension Respiratory History: No Pertinent History Endocrine Medical History: No Pertinent History Musculoskeletal History: No Pertinent History GI Medical History: Diverticulosis, GERD, Gallbladder Disease History: No Pertinent History Psycho-Social History: No Pertinent History Male Reproductive Disorders: No Pertinent History Other Medical History: NO PRIOR INJURIES TO THE L SHOULDER, R RTC SURGERY. L TENNIS ELBOW CURRENTLY. - Past Surgical History Past Surgical History: Yes Neuro Surgical History: No Pertinent History Cardiac: Cardiac Catheterization Respiratory: No Pertinent History Gastrointestinal: Cholecystectomy Genitourinary: No Pertinent History Musculoskeletal: No Pertinent History, Orthopedic Surgery Male Surgical History: No Pertinent History Other Surgical History: EYE SURGERY X9,shoulder x2 - Social History Smoking Status: Never smoker Exposure to second hand smoke: Yes Drug Use: none Patient Lives Alone: Yes - Nursing Vital Signs Nursing Vital Signs: Initial Vital Signs Temperature 98.0 F 07/19/22 08:56 Pulse Rate 86 07/19/22 08:56 Respiratory Rate 18 07/19/22 08:56 Blood Pressure 138/88 07/19/22 08:56 O2 Sat by Pulse Oximetry 97 07/19/22 08:56 Pain Scale Pain Intensity 10 - Physical Exam General Appearance: mild distress, alert, anxiety Eye Exam: PERRL/EOMI Ears, Nose, Throat Exam: normal ENT inspection, moist mucous membranes Neck Exam: normal inspection, non-tender, supple, full range of motion Respiratory Exam: normal breath sounds, chest tenderness (Anterior chest wall tenderness), lungs clear, airway intact, No respiratory distress Cardiovascular Exam: regular rate/rhythm, normal heart sounds, normal peripheral pulses Gastrointestinal/Abdomen Exam: soft, normal bowel sounds, No tenderness Rectal Exam: not done Back Exam: normal inspection, normal range of motion, No CVA tenderness, No vertebral tenderness Extremity Exam: normal inspection, normal range of motion, pelvis stable Neurologic Exam: alert, oriented x 3, 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, 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, normal mood/affect, nml cerebellar function, nml station & gait, sensation nml Skin Exam: normal color, warm, dry Lymphatic Exam: No adenopathy SpO2 Interpretation: normal O2 Delivery: Room Air - Course Nursing assessment & vital signs reviewed: Yes EKG Interpreted by Me: RATE (81), Sinus Rhythm, NORMAL AXIS, NORMAL INTERVALS, NORMAL QRS, NORMAL ST-T, Other Ordered Tests: Active Orders 24 hr Category Date Time Status EKG-ER Only STAT Care 07/19/22 09:21 Active IV Insertion STAT Care 07/19/22 09:21 Active CHEST WITH CONTRAST [CT] Stat Exams 07/19/22 09:23 Completed BMP Stat Lab 07/19/22 09:30 Completed CBC W DIFF Stat Lab 07/19/22 09:30 Completed TROPONIN Q4H Lab 07/19/22 09:30 Received TROPONIN Q4H Lab 07/19/22 13:30 Ordered TROPONIN Q4H Lab 07/19/22 17:30 Ordered Medication Summary Discontinued Medications Generic Name Dose Route Start Last Admin Trade Name Freq PRN Reason Stop Dose Admin Hydromorphone HCl 1 mg 07/19/22 09:23 07/19/22 09:50 Hydromorphone 1 Mg/1ml Inj 1 Mg/Ml Syringe IV 07/19/22 09:24 1 mg STAT ONE Administration Hydromorphone HCl Confirm 07/19/22 09:49 Hydromorphone 1 Mg/1ml Inj 1 Mg/Ml Syringe Administered 07/19/22 09:50 Dose 1 mg .ROUTE .STK-MED ONE Ondansetron HCl 4 mg 07/19/22 09:23 07/19/22 09:49 Ondansetron Hcl 4 Mg/2 Ml Vial IV 07/19/22 09:24 4 mg STAT ONE Administration Ondansetron HCl Confirm 07/19/22 09:49 Ondansetron Hcl 4 Mg/2 Ml Vial Administered 07/19/22 09:50 Dose 4 mg .ROUTE .STK-MED ONE Lab/Rad Data: Laboratory Result Diagrams 07/19/22 09:30 07/19/22 09:30 Laboratory Results 07/19/22 07/19/22 Range/Units 09:30 09:30 WBC 5.7 (4.0-10.5) x10^3/uL RBC 5.33 (4.1-5.6) x10^6/uL Hgb 15.7 (12.5-18.0) g/dL Hct 44.0 (42-50) % MCV 82.6 (78-100) fL MCH 29.5 (26-32) pg MCHC 35.7 (32-36) g/dL RDW 12.3 (11.5-14.0) % Plt Count 197 (150-450) x10^3/uL MPV 10.4 (7.5-11.0) fL Gran % 50.5 (36.0-66.0) % Immature Gran % (Auto) 0.2 (0.00-0.4) % Nucleat RBC Rel Count 0.0 (0.00-0.1) % Eos # (Auto) 0.05 (0-0.5) x10^3/uL Immature Gran # (Auto) 0.01 (0.00-0.03) x10^3u/L Absolute Lymphs (auto) 2.32 (1.0-4.6) x10^3/uL Absolute Monos (auto) 0.44 (0.0-1.3) x10^3/uL Absolute Nucleated RBC 0.00 (0.00-0.01) x10^3u/L Lymphocytes % 40.4 (24.0-44.0) % Monocytes % 7.7 (0.0-12.0) % Eosinophils % 0.9 (0.00-5.0) % Basophils % 0.3 (0.0-0.4) % Absolute Granulocytes 2.90 (1.4-6.9) x10^3/uL Basophils # 0.02 (0-0.4) x10^3/uL Sodium 133 L (137-145) mmol/L Potassium 4.9 (3.5-5.1) mmol/L Chloride 102 (98-107) mmol/L Carbon Dioxide 22 (22-30) mmol/L Anion Gap 14.4 (5-15) MEQ/L BUN 19 (9-20) mg/dL Creatinine 0.81 (0.66-1.25) mg/dL Estimated GFR > 60.0 ML/MIN Glucose 484 H (74-106) mg/dL Calcium 8.8 (8.4-10.2) mg/dL - Progress Progress: re-examined Air Movement: good Progress Note: 07/19/22 10:36 CAT scan of the chest with contrast shows no acute intra thoracic pulmonary vasculature process. There is no difference when compared to the CAT scan that was done 4 days ago. This patient's medical issue is 1 of moderate complexity. The level of complexity and the work-up performed is based on review of the patient's past medical history, review of the patient's medication list, review of the patient's drug allergy list, history of present illness and physical findings on examination. The work-up includes placement of an intravenous line, injection of Zofran and Dilaudid intravenously. CBC, BMP, troponin, twelve-lead EKG and a CAT scan of the chest with contrast. There are no acute abnormalities. Discharge planning includes ice pack to the anterior chest wall. Use Percocet 5/325 as prescribed. Follow-up with primary care provider for pain control and other medical issues. Blood Culture(s) Obtained: No Antibiotics given: No Counseled pt/family regarding: lab results, diagnosis, need for follow-up, rad results Medical Desision Making - Discussion of managment Agreed on:: Treatment plan, need for follow-up - Diagnostic Testing Diagnostic test were ordered, analyzed, and reviewed by me: Yes Radiological Interpretation: Reviewed by me - Risk of complications The pt has a mod risk of morbidity or mortality based on: Need for prescription drug management - Departure Departure Disposition: Home Clinical Impression: Chest wall discomfort, Blunt trauma Condition: Stable Critical Care Time: No Referrals: DOCTOR,NO FAMILY [Primary Care Provider] - Follow up/PCP as directed Additional Instructions: Ice pack to tender area of chest 3 times a day for next 48 hours. Take your Percocet as prescribed. Follow-up with a primary care provider for further evaluation and management of your pain and other medical issues. Prescriptions: Oxycodone HCl/Acetaminophen [Percocet 5-325 mg Tablet] 1 each PO Q8H PRN PRN #6 tablet MDD 3 PRN Reason: Moderate To Severe Pain
[2022-07-19 09:00] VITALS: PULSE 86
[2022-07-19] MEDS ORDERED: Zofran 4 MG/2 ML VIAL IV ONE (09:23)
[2022-07-19] MEDS ORDERED: Hydromorphone 1 mg/ml Injection IV ONE (09:23)
[2022-07-19 09:49] LABS: BASOPHIL % 0.3 % (0.0-0.4); Basophil (Absolute #) 0.02 x10^3/uL (0-0.4); Eosinophil % 0.9 % (0.00-5.0); Eosinophil (Absolute #) 0.05 x10^3/uL (0-0.5); Hemoglobin 15.7 g/dL (12.5-18.0); IMMATURE GRAN # 0.01 x10^3u/L (0.00-0.03); IMMATURE GRAN % 0.2 % (0.00-0.4); Lymphocyte (Absolute #) 2.32 x10^3/uL (1.0-4.6); Lymphocytes % 40.4 % (24.0-44.0); Mean Cell Volume 82.6 fL (78-100); Mean Corpuscular Hemoglobin 29.5 pg (26-32); Mean Corpuscular Hgb Concent. 35.7 g/dL (32-36); Mean Platelet Volume 10.4 fL (7.5-11.0); Monocyte (Absolute #) 0.44 x10^3/uL (0.0-1.3); Monocytes % 7.7 % (0.0-12.0); Neutrophil % 50.5 % (36.0-66.0); Platelet Count 197 x10^3/uL (150-450); Red Blood Count 5.33 x10^6/uL (4.1-5.6); Red Cell Distribution Width 12.3 % (11.5-14.0); White Blood Count 5.7 x10^3/uL (4.0-10.5)
[2022-07-19] MEDS ORDERED: Zofran 4 MG/2 ML VIAL ONE (09:49)
[2022-07-19] MEDS ORDERED: Hydromorphone 1 mg/ml Injection ONE (09:49)
[2022-07-19 10:19] LABS: ANION GAP 14.4 MEQ/L (5-15); BLOOD UREA NITROGEN 19 mg/dL (9-20); CHLORIDE 102 mmol/L (98-107); Calcium 8.8 mg/dL (8.4-10.2); Carbon Dioxide 22 mmol/L (22-30); Creatinine 1 0.81 mg/dL (0.66-1.25); EST GLOMERULAR FILTRATION RATE > 60.0 ML/MIN; Glucose 484 mg/dL (74-106); Potassium 4.9 mmol/L (3.5-5.1); SODIUM 133 mmol/L (137-145)
--- NOTE | 2022-07-19 10:34 | XRAY ---
Indication: Anterior chest pain following trauma 5 days ago. Multiple contiguous images obtained through the chest using 80 cc Isovue 370 contrast. Comparison: July 15, 2022 Lungs again demonstrates minimal inferior lingula and left base subsegmental atelectasis/scarring. No suspicious pulmonary mass, infiltrate, effusion, or pneumothorax. Heart not enlarged again with coronary calcifications. Aorta remains normal in course and caliber without aneurysm/dissection. No pathologic mediastinal/hilar lymphadenopathy. Bony thorax intact again with minimal degenerative changes throughout the spine. Limited upper abdomen again demonstrates fatty liver and cholecystectomy. Impression: No change compared to ER CT 4 days ago. Again minimal atelectasis/scarring, coronary calcifications, minimal degenerative spondylosis, and fatty liver. No new/acute findings.
[2022-07-19 11:21] VITALS: BP 131/82; O2SAT 95
== END 2022-07-19 11:27 | disposition home or self-care (01) ==
LOC: ED 08:47
DX: R07.89 Other chest pain (principal); S29.9XXA Unspecified injury of thorax, initial encounter; I10 Essential (primary) hypertension; Z79.891 Long term (current) use of opiate analgesic; Z79.899 Other long term (current) drug therapy
CPT/HCPCS: 36000; 36415; 71260; 80048; 84484; 85025; 93005; 96374; 96375; 99284; J1170; J2405

== ENCOUNTER 2022-10-29 13:07 | Emergency (ER) | payer OTHER ==
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
[2022-10-29 13:22] VITALS: O2SAT 98
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
[2022-10-29] MEDS ORDERED: PERCOCET TABLET 5/325MG PO STA (14:28)
[2022-10-29] MEDS ORDERED: PERCOCET TABLET 5/325MG ONE (14:33)
[2022-10-29 14:36] VITALS: BP 138/76; PULSE 73
== END 2022-10-29 14:43 | disposition home or self-care (01) ==
LOC: ED 13:07
DX: S00.83XA Contusion of other part of head, initial encounter (principal); S00.31XA Abrasion of nose, initial encounter; S00.01XA Abrasion of scalp, initial encounter; V87.9XXA Person injured in other specified (collision)(noncollision) transport accidents involving nonmotor vehicle (traffic), initial encounter; M54.2 Cervicalgia; R51.9 Headache, unspecified; I10 Essential (primary) hypertension; Z79.899 Other long term (current) drug therapy
CPT/HCPCS: 70450; 70486; 72125; 99283; A9270-GY

== ENCOUNTER 2022-11-01 14:00 | Emergency (ER) | payer OTHER ==
[2022-11-01] MEDS ORDERED: Compazine 10 MG/2 ML IV ONE (14:28)
[2022-11-01] MEDS ORDERED: TORAdol 30 mg Injection IV ONE (14:28)
[2022-11-01] MEDS ORDERED: TYLENOL 325 MG PO ONE (14:29)
[2022-11-01] MEDS ORDERED: TORAdol 30 mg Injection ONE (14:46)
[2022-11-01] MEDS ORDERED: TYLENOL 325 MG ONE (14:46)
[2022-11-01] MEDS ORDERED: Compazine 10 MG/2 ML ONE (14:46)
[2022-11-01 14:48] LABS: Absolute Neutrophil Ct (ANC) 2.49 x10^3/uL (1.4-6.9); BASOPHIL % 0.4 % (0.0-0.4); Basophil (Absolute #) 0.02 x10^3/uL (0-0.4); Eosinophil % 1.7 % (0.00-5.0); Eosinophil (Absolute #) 0.09 x10^3/uL (0-0.5); Hematocrit 43.6 % (42-50); IMMATURE GRAN # 0.01 x10^3u/L (0.00-0.03); IMMATURE GRAN % 0.2 % (0.00-0.4); Lymphocyte (Absolute #) 2.25 x10^3/uL (1.0-4.6); Lymphocytes % 42.7 % (24.0-44.0); Mean Cell Volume 80.9 fL (78-100); Mean Corpuscular Hemoglobin 27.8 pg (26-32); Mean Corpuscular Hgb Concent. 34.4 g/dL (32-36); Mean Platelet Volume 9.9 fL (7.5-11.0); Monocyte (Absolute #) 0.41 x10^3/uL (0.0-1.3); Monocytes % 7.8 % (0.0-12.0); Neutrophil % 47.2 % (36.0-66.0); Platelet Count 206 x10^3/uL (150-450); Red Blood Count 5.39 x10^6/uL (4.1-5.6); Red Cell Distribution Width 12.6 % (11.5-14.0); White Blood Count 5.3 x10^3/uL (4.0-10.5)
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
[2022-11-01 15:10] LABS: ALBUMIN 4.1 g/dL (3.5-5.0); ALKALINE PHOSPHATASE 118 U/L (38-126); ANION GAP 13.2 MEQ/L (5-15); BLOOD UREA NITROGEN 17 mg/dL (9-20); CHLORIDE 101 mmol/L (98-107); Carbon Dioxide 25 mmol/L (22-30); Creatinine 1 0.66 mg/dL (0.66-1.25); EST GLOMERULAR FILTRATION RATE > 60.0 ML/MIN; Glucose 412 mg/dL (74-106); NT PRO BNPII 144 pg/mL (<300); Potassium 4.2 mmol/L (3.5-5.1); SGOT/AST 24 U/L (17-59); SGPT/ALT 35 U/L (0-50); SODIUM 136 mmol/L (137-145); Total Protein 7.5 g/dL (6.3-8.2)
[2022-11-01] MEDS ORDERED: Sodium Chloride 0.9% 1000 ML 1,000 ML IV STA (16:07)
[2022-11-01] MEDS ORDERED: Sodium Chloride 0.9% 1000 ML 1,000 ML ONE (16:34)
[2022-11-01 18:52] VITALS: O2SAT 95
[2022-11-01 18:57] VITALS: BP 143/88; PULSE 77
== END 2022-11-01 18:59 | disposition home or self-care (01) ==
LOC: ED 14:00
DX: R73.9 Hyperglycemia, unspecified (principal); I10 Essential (primary) hypertension; R07.9 Chest pain, unspecified; Z79.899 Other long term (current) drug therapy
CPT/HCPCS: 36000; 36415; 80053; 82947; 83880; 84484; 85025; 85379; 93005; 93041; 94760; 96374; 96375; 99284; J1885; A9270-GY

== ENCOUNTER 2023-04-10 14:28 | Emergency (ER) | payer BC, OTHER ==
[2023-04-10 14:40] VITALS: BP 171/98; PULSE 90; RESP 18; TEMP 97.9; O2SAT 97
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
[2023-04-10 15:15] LABS: Group A Strep NOT DETECTED (NEGATIVE)
[2023-04-10 15:28] LABS: INFLUENZA A NEGATIVE (NEGATIVE); INFLUENZA B NEGATIVE (NEGATIVE); RESPIRATORY SYNCTIAL VIRUS NEGATIVE (NEGATIVE); SARS-CoV-2 Xpert Express NEGATIVE (NEGATIVE)
--- NOTE | 2023-04-10 20:37 | XRAY ---
Indication: Right chest wall pain. Comparison: April 04, 2020 PA/lateral chest now demonstrates normal heart and lungs. Bony thorax intact. No new/acute findings.
== END 2023-04-10 15:42 | disposition home or self-care (01) ==
LOC: ED 14:28
DX: J20.8 Acute bronchitis due to other specified organisms (principal); R05.1 Acute cough; I10 Essential (primary) hypertension; Z79.899 Other long term (current) drug therapy
CPT/HCPCS: 0241U; 71046; 87651; 93005; 99283

== ENCOUNTER 2023-04-16 09:31 | Emergency (ER) | payer BC, OTHER ==
[2023-04-16 09:41] VITALS: RESP 20; O2SAT 98
[2023-04-16 10:07] LABS: Group A Strep NOT DETECTED (NEGATIVE)
[2023-04-16 10:19] LABS: INFLUENZA A NEGATIVE (NEGATIVE); INFLUENZA B NEGATIVE (NEGATIVE); RESPIRATORY SYNCTIAL VIRUS NEGATIVE (NEGATIVE); SARS-CoV-2 Xpert Express NEGATIVE (NEGATIVE)
[2023-04-16 10:36] VITALS: BP 142/84; PULSE 88; TEMP 98.2
--- NOTE | 2023-04-16 10:48 | ERPHSYRPT ---
- History of Present Illness Time Seen by Provider: 04/16/23 10:08 Source: patient Exam Limitations: no limitations Patient Subjective Stated Complaint: Pt states "I have been coughing and congestion for a week. I have been to [facility] and I was here on [facility] and they did a chest x ray. My work keeps saying I need to get back into the truck but I am nervous to." Triage Nursing Assessment: Pt presented alert and oriented X 3, skin pwd.Pt ambulates with an upright steady gait, able to speak in clear full sentences.PT resting comfortably on the bed. Physician History: 47 years old with history of hypertension presented in the ER with chief complaint of cough congestion symptoms for little over 1 week. Patient reports nonproductive cough with feeling of congestion. Reports having bouts of coughing and feels dizzy while having diarrhea. No fever or chills reported. Does have sinus pressure as well. No difficulty breathing. No chest pain or palpitations reported. Denies any known sick contact. Patient has been evaluated in this ER and [facility] before with negative swabs and chest x-rays. Patient reports "I am here only because my work wants me to return and I feel nervous about it". Patient reports he feels dizzy after repeated coughing and does not feel safe going back to work. Allergies/Adverse Reactions: No Known Drug Allergies Allergy (Verified 04/10/23 14:32) Home Medications: Losartan Potassium 50 mg [Cozaar 50 MG] 50 mg PO DAILY 10/11/13 [History] Hx Tetanus, Diphtheria Vaccination/Date Given: Yes Hx Influenza Vaccination/Date Given: No Hx Pneumococcal Vaccination/Date Given: Yes Immunizations Up to Date: Yes Travel Risk - International Travel Have you traveled outside of the country in past 3 weeks: No - Coronavirus Screening Are you exhibiting any of the following symptoms?: Yes Symptoms: Fever, Cough: New Onset Close contact with a COVID-19 positive Pt in past 14-21 Days: No - Vaccine Status Have you recieved a Covid-19 vaccination: Yes 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: 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 - Vaccination Dates Date of 2cond Vaccination (if applicable): nA - Review of Systems Constitutional: No Symptoms Eyes: No Symptoms Ears, Nose, & Throat: Nose Congestion, Throat Pain, Throat Swelling Respiratory: Cough, No Dyspnea Cardiac: No Symptoms Abdominal/Gastrointestinal: No Symptoms Genitourinary Symptoms: No Symptoms Musculoskeletal: Myalgias Neurological: No Symptoms Psychological: No Symptoms Endocrine: No Symptoms Hematologic/Lymphatic: No Symptoms - Past Medical History Pertinent Past Medical History: Yes Neurological History: No Pertinent History ENT History: Other Cardiac History: Hypertension Respiratory History: No Pertinent History Endocrine Medical History: No Pertinent History Musculoskeletal History: No Pertinent History GI Medical History: Diverticulosis, GERD, Gallbladder Disease History: No Pertinent History Psycho-Social History: No Pertinent History Male Reproductive Disorders: No Pertinent History Other Medical History: NO PRIOR INJURIES TO THE L SHOULDER, R RTC SURGERY. L TENNIS ELBOW CURRENTLY. eye muscle - Past Surgical History Past Surgical History: Yes Neuro Surgical History: No Pertinent History Cardiac: Cardiac Catheterization Respiratory: No Pertinent History Gastrointestinal: Cholecystectomy Genitourinary: No Pertinent History Musculoskeletal: Orthopedic Surgery Male Surgical History: No Pertinent History Other Surgical History: EYE SURGERY X9,shoulder x3 - 2 on R, 1 on L - Social History Smoking Status: Never smoker Exposure to second hand smoke: Yes Drug Use: none Patient Lives Alone: Yes - Nursing Vital Signs Nursing Vital Signs: Initial Vital Signs Temperature 97.7 F 04/16/23 09:37 Pulse Rate 93 H 04/16/23 09:37 Respiratory Rate 20 04/16/23 09:37 Blood Pressure 143/94 04/16/23 09:37 O2 Sat by Pulse Oximetry 98 04/16/23 09:37 Pain Scale Pain Intensity 2 - Physical Exam General Appearance: no apparent distress, alert Eye Exam: PERRL/EOMI Ears, Nose, Throat Exam: moist mucous membranes, pharyngeal erythema Neck Exam: normal inspection, non-tender, supple, full range of motion, lymphadenopathy Respiratory Exam: normal breath sounds, lungs clear Cardiovascular Exam: regular rate/rhythm, normal heart sounds Gastrointestinal/Abdomen Exam: soft, normal bowel sounds, No tenderness Extremity Exam: normal inspection Neurologic Exam: alert, oriented x 3, cooperative, band straightener II-XII nml as tested Skin Exam: normal color SpO2 Interpretation: normal SpO2: 98 O2 Delivery: Room Air Ordered Tests: Active Orders 24 hr Category Date Time Status CHEST 1 VIEW (PORTABLE) Stat Exams 04/16/23 09:51 Taken Lab/Rad Data: Laboratory Results 04/16/23 Range/Units 09:40 Influenza Type A Ag NEGATIVE (NEGATIVE) Influenza Type B Ag NEGATIVE (NEGATIVE) RSV (PCR) NEGATIVE (NEGATIVE) SARS-CoV-2 (PCR) NEGATIVE (NEGATIVE) Group A Strep Antibody NOT DETECTED (NEGATIVE) - Progress Progress: re-examined Air Movement: good Progress Note: 04/16/23 10:46 47 years old with history of hypertension presented in the ER with chief complaint of cough congestion symptoms for little over 1 week. Patient reports nonproductive cough with feeling of congestion. Reports having bouts of dry coughing and feels dizzy while having diarrhea. No fever or chills reported. Does have sinus pressure as well. No difficulty breathing. No chest pain or palpitations reported. Denies any known sick contact. Patient has been evaluated in this ER and [facility] before with negative swabs and chest x-rays. Patient reports "I am here only because my work wants me to return and I feel nervous about it". Patient reports he feels dizzy after repeated coughing and does not feel safe going back to work. Patient is not in any distress. Lungs bilateral clear to auscultation. X-rays reviewed my knees shows actually some improvement from x-rays done almost 6 days ago. He is afebrile. 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 I would give him a work excuse for couple of days and recommend continuing with cough congestion medications. Discussed signs symptoms of worsening needing return to ER which she seems understanding. It does not seem cardiac in nature at all and more of infectious etiology probably viral and will continue with supportive care. Blood Culture(s) Obtained: No Antibiotics given: No Counseled pt/family regarding: diagnosis, need for follow-up, rad results Medical Desision Making - Diagnostic Testing Diagnostic test were ordered, analyzed, and reviewed by me: Yes Radiological Interpretation: Interpreted by me, Reviewed by me - Departure Departure Disposition: Home Clinical Impression: Upper respiratory infection with cough and congestion, Viral syndrome Condition: Stable Critical Care Time: No Referrals: DOCTOR,NO FAMILY [Primary Care Provider] - Follow up with PCP 2 days Instructions: Viral Syndrome (DC) Additional Instructions: Continue with your cough congestion medications. Follow-up with primary care for reevaluation. Return to ER for worsening cough or if having difficulty breathing, fever chills etc. Forms: Work/School Release Form
--- NOTE | 2023-04-16 20:27 | XRAY ---
Indication: Fever and cough. Comparison: April 10, 2023 Portable chest demonstrates new minimal left base subsegmental atelectasis/scarring. Remaining heart, right lung, and bony thorax normal.
== END 2023-04-16 10:59 | disposition home or self-care (01) ==
LOC: ED 09:31
DX: J06.9 Acute upper respiratory infection, unspecified (principal); R05.1 Acute cough; R42 Dizziness and giddiness; I10 Essential (primary) hypertension; Z79.899 Other long term (current) drug therapy
CPT/HCPCS: 0241U; 71045; 87651; 99283

== ENCOUNTER 2023-08-31 12:27 | Emergency (ER) | payer BC, OTHER ==
--- NOTE | 2023-08-31 12:57 | ERPHSYRPT ---
- History of Present Illness Time Seen by Provider: 08/31/23 12:34 Source: patient Exam Limitations: no limitations Patient Subjective Stated Complaint: PT states "I had an ischemic stroke two weeks ago and they gave me a shot of tnk and I had MRI, CT, heart caths and the words. Last night I just started to feel a little off and the right side of my chest I cannot feel like I am getting a full breath." Triage Nursing Assessment: Pt presented alert and oriented X 3, skin pwd. Pt ambulates with an upright steady gait, able to speak in clear full sentences. PT resting comfortably on the bed. Pt able to move all extremities good strength, no facial droop, clear speech. Physician History: 47 years old male with history of recent ischemic stroke needing tenect[facility]pl[facility] at [facility], also recently diagnosed diabetes mellitus on insulin, recent cardiac cath showing triple-vessel disease supposed to follow-up with cardiology/cardiothoracic in [place] with some right upper and lower extremity tingling sensation leftover from ischemic stroke presented in the ER with complaint of right-sided chest pain to deep breathing and kind of pressure sensation off and on since last night. Also reports having mild headache and feeling a little off earlier today but currently has no headache or dizziness. Patient denies any new numbness tingling or weakness. No visual disturbance or difficulty speech. No difficulty ambulation. Pain is dull aching mild nature with no significant relieving factor mild aggravation with taking deep breath. Denies any tobacco use or COPD. No lower extremity swelling reported. No history of DVT/PE. Allergies/Adverse Reactions: No Known Drug Allergies Allergy (Verified 04/10/23 14:32) Home Medications: Losartan Potassium 50 mg [Cozaar 50 MG] 50 mg PO DAILY 10/11/13 [History] Clopidogrel Bisulfate [Clopidogrel] 75 mg PO DAILY 08/31/23 [History] Insulin Glargine,Hum.rec.anlog [Insulin Glargine Solostar] 300 unit SQ DAILY 08/31/23 [History] Hx Tetanus, Diphtheria Vaccination/Date Given: Yes Hx Influenza Vaccination/Date Given: No Hx Pneumococcal Vaccination/Date Given: Yes Immunizations Up to Date: No Travel Risk - International Travel Have you traveled outside of the country in past 3 weeks: No - Emerging Infectious Disease Are you exhibiting symptoms associated with any current EIDs: No - Review of Systems Constitutional: Fatigue, Weakness Eyes: No Symptoms Ears, Nose, & Throat: No Symptoms Respiratory: No Symptoms Cardiac: No Symptoms Abdominal/Gastrointestinal: No Symptoms Genitourinary Symptoms: No Symptoms Musculoskeletal: No Symptoms Skin: No Symptoms Neurological: Sensory Changes Psychological: No Symptoms Hematologic/Lymphatic: No Symptoms Immunological/Allergic: No Symptoms - Past Medical History Pertinent Past Medical History: Yes Neurological History: No Pertinent History, Stroke ENT History: Other Cardiac History: Hypertension Respiratory History: No Pertinent History Endocrine Medical History: No Pertinent History Musculoskeletal History: No Pertinent History GI Medical History: Diverticulosis, GERD, Gallbladder Disease History: No Pertinent History Psycho-Social History: No Pertinent History Male Reproductive Disorders: No Pertinent History Other Medical History: NO PRIOR INJURIES TO THE L SHOULDER, R RTC SURGERY. L TENNIS ELBOW CURRENTLY. eye muscle - Past Surgical History Past Surgical History: Yes Neuro Surgical History: No Pertinent History Cardiac: Cardiac Catheterization Respiratory: No Pertinent History Gastrointestinal: Cholecystectomy Genitourinary: No Pertinent History Musculoskeletal: Orthopedic Surgery Male Surgical History: No Pertinent History Other Surgical History: EYE SURGERY X9,shoulder x3 - 2 on R, 1 on L - Social History Smoking Status: Never smoker Exposure to second hand smoke: Yes Drug Use: none Patient Lives Alone: Yes - Nursing Vital Signs Nursing Vital Signs: Initial Vital Signs Temperature 97.5 F 08/31/23 12:34 Pulse Rate 79 08/31/23 12:34 Respiratory Rate 20 08/31/23 12:34 Blood Pressure 164/101 08/31/23 12:34 O2 Sat by Pulse Oximetry 98 08/31/23 12:34 Pain Scale Pain Intensity 0 - Physical Exam General Appearance: no apparent distress, alert, anxiety Eye Exam: PERRL/EOMI, eyes nml inspection Ears, Nose, Throat Exam: hearing grossly normal, normal ENT inspection, normal p harynx Neck Exam: normal inspection, non-tender, supple, full range of motion Respiratory Exam: normal breath sounds, lungs clear Cardiovascular/Chest Exam: normal heart sounds, regular rate/rhythm Abdominal/Gastrointestinal Exam: soft, normal bowel sounds, No tenderness Extremity Exam: non-tender, normal range of motion, normal inspection Neurologic Exam: alert, oriented x 3, cooperative, posting specialist II-XII nml as tested, normal mood/affect, nml cerebellar function, nml station & gait, sensory deficit (Mild decrease sensation of fine touch and upper and lower extremity), No motor deficits Skin Exam: normal color SpO2 Interpretation: normal SpO2: 100 O2 Delivery: Room Air - Course EKG Interpreted by Me: RATE (78), Sinus Rhythm, NORMAL AXIS, NORMAL INTERVALS, Non-specific ST Changes Ordered Tests: Active Orders 24 hr Category Date Time Status AMA [Release AMA] OM.NOW Care 08/31/23 15:19 Completed Gauge Maker Apprentice STAT Care 08/31/23 12:56 Completed EKG-ER Only STAT Care 08/31/23 12:55 Completed IV Insertion STAT Care 08/31/23 12:55 Completed CHEST 1 VIEW (PORTABLE) Stat Exams 08/31/23 12:56 Completed HEAD WITHOUT CONTRAST [CT] Stat Exams 08/31/23 13:57 Completed CBC W DIFF Stat Lab 08/31/23 12:55 Completed CMP Stat Lab 08/31/23 12:40 Completed D-DIMER QUANTITATIVE Stat Lab 08/31/23 12:40 Completed Lactic Acid Stat Lab 08/31/23 12:55 Completed MAGNESIUM Stat Lab 08/31/23 12:40 Completed NT PRO BNPII Stat Lab 08/31/23 12:40 Completed TROPONIN Q4H Lab 08/31/23 12:40 Completed Respiratory Therapy Assessment DAILY RT 08/31/23 13:10 Completed Medication Summary Discontinued Medications Generic Name Dose Route Start Last Admin Trade Name Freq PRN Reason Stop Dose Admin Albuterol/Ipratropium 3 ml 08/31/23 12:55 08/31/23 13:07 Ipratropium/Albuterol Sulfate 3 Ml Ampul.Neb IH 08/31/23 12:56 3 ml STAT ONE Administration Albuterol/Ipratropium Confirm 08/31/23 13:06 Ipratropium/Albuterol Sulfate 3 Ml Ampul.Neb Administered 08/31/23 13:07 Dose 3 ml IH .STK-MED ONE Lab/Rad Data: Laboratory Result Diagrams 08/31/23 12:55 08/31/23 12:40 Laboratory Results 08/31/23 08/31/23 08/31/23 Range/Units 12:55 12:55 12:40 WBC 6.6 (4.0-10.5) x10^3/uL RBC 5.48 (4.1-5.6) x10^6/uL Hgb 15.6 (12.5-18.0) g/dL Hct 44.5 (42-50) % MCV 81.2 (78-100) fL MCH 28.5 (26-32) pg MCHC 35.1 (32-36) g/dL RDW 12.3 (11.5-14.0) % Plt Count 226 (150-450) x10^3/uL MPV 9.9 (7.5-11.0) fL Gran % 53.0 (36.0-66.0) % Immature Gran % (Auto) 0.3 (0.00-0.4) % Nucleat RBC Rel Count 0.0 (0.00-0.1) % Eos # (Auto) 0.08 (0-0.5) x10^3/uL Immature Gran # (Auto) 0.02 (0.00-0.03) x10^3u/L Absolute Lymphs (auto) 2.45 (1.0-4.6) x10^3/uL Absolute Monos (auto) 0.53 (0.0-1.3) x10^3/uL Absolute Nucleated RBC 0.00 (0.00-0.01) x10^3u/L Lymphocytes % 36.9 (24.0-44.0) % Monocytes % 8.0 (0.0-12.0) % Eosinophils % 1.2 (0.00-5.0) % Basophils % 0.6 (0.0-0.4) % Absolute Granulocytes 3.52 (1.4-6.9) x10^3/uL Basophils # 0.04 (0-0.4) x10^3/uL D-Dimer (0.0-0.50) mg/L Sodium (135-145) mmol/L Potassium (3.5-5.1) mmol/L Chloride (98-107) mmol/L Carbon Dioxide (22-30) mmol/L Anion Gap (5-15) MEQ/L BUN (9-20) mg/dL Creatinine (0.66-1.25) mg/dL Estimated GFR ML/MIN Glucose (74-106) mg/dL Lactic Acid 1.5 (0.4-2.0) Calcium (8.4-10.2) mg/dL Magnesium (1.6-2.3) mg/dL Total Bilirubin (0.2-1.3) mg/dL AST (17-59) U/L ALT (0-50) U/L Alkaline Phosphatase (38-126) U/L Troponin I < 0.012 (0.000-0.033) ng/mL NT-Pro-B Natriuret Pep (<300) pg/mL Serum Total Protein (6.3-8.2) g/dL Albumin (3.5-5.0) g/dL 08/31/23 08/31/23 Range/Units 12:40 12:40 WBC (4.0-10.5) x10^3/uL RBC (4.1-5.6) x10^6/uL Hgb (12.5-18.0) g/dL Hct (42-50) % MCV (78-100) fL MCH (26-32) pg MCHC (32-36) g/dL RDW (11.5-14.0) % Plt Count (150-450) x10^3/uL MPV (7.5-11.0) fL Gran % (36.0-66.0) % Immature Gran % (Auto) (0.00-0.4) % Nucleat RBC Rel Count (0.00-0.1) % Eos # (Auto) (0-0.5) x10^3/uL Immature Gran # (Auto) (0.00-0.03) x10^3u/L Absolute Lymphs (auto) (1.0-4.6) x10^3/uL Absolute Monos (auto) (0.0-1.3) x10^3/uL Absolute Nucleated RBC (0.00-0.01) x10^3u/L Lymphocytes % (24.0-44.0) % Monocytes % (0.0-12.0) % Eosinophils % (0.00-5.0) % Basophils % (0.0-0.4) % Absolute Granulocytes (1.4-6.9) x10^3/uL Basophils # (0-0.4) x10^3/uL D-Dimer 0.47 (0.0-0.50) mg/L Sodium 139 (135-145) mmol/L Potassium 4.0 (3.5-5.1) mmol/L Chloride 104 (98-107) mmol/L Carbon Dioxide 26 (22-30) mmol/L Anion Gap 13.5 (5-15) MEQ/L BUN 15 (9-20) mg/dL Creatinine 0.76 (0.66-1.25) mg/dL Estimated GFR 110.9 ML/MIN Glucose 164 H (74-106) mg/dL Lactic Acid (0.4-2.0) Calcium 9.8 (8.4-10.2) mg/dL Magnesium 1.7 (1.6-2.3) mg/dL Total Bilirubin 1.00 (0.2-1.3) mg/dL AST 23 (17-59) U/L ALT 29 (0-50) U/L Alkaline Phosphatase 78 (38-126) U/L Troponin I (0.000-0.033) ng/mL NT-Pro-B Natriuret Pep 503 (<300) pg/mL Serum Total Protein 7.8 (6.3-8.2) g/dL Albumin 4.3 (3.5-5.0) g/dL - Progress Progress: improved, re-examined Air Movement: good Progress Note: 08/31/23 15:17 47 years old with recent ischemic stroke, triple-vessel coronary artery disease needing CABG scheduled for appointment with cardiology next month, diabetes mellitus is evaluated in the ER for intermittent right-sided chest discomfort/pressure and mild dizziness earlier. Patient has no new focal neurosymptoms. Not in any distress. EKG showed sinus rhythm with no ST elevations and negative initial troponins. Patient workup showed normal white count, fairly unremarkable chemistries and negative D-dimers. Chest x-ray negative for any acute cardiopulmonary findings. Patient has a negative CT head stroke protocol. Patient is given neb treatment, feeling a little better but still have some off-and-on pressure in the right side. Patient later on reported to me that he had the same kind of pressure day after he had a stroke, was evaluated by cardiology and cath showed triple-vessel disease. I have recommended admission/transfer for further evaluation keeping in mind the fact patient has documented triple-vessel disease but he does not want to stay in the hospital at all. He does not want to stay for second troponin either. Patient is not confused or altered at all. I have discussed with patient in length about risk of leaving AGAINST MEDICAL ADVICE which would not only delay the diagnosis but worsening of morbidity including permanent disability and which he understands and still wants to leave. Patient signed AMA paper and walked out of the ER without assistance in a stable condition. Blood Culture(s) Obtained: No Antibiotics given: No Counseled pt/family regarding: lab results, diagnosis, need for follow-up, rad results Medical Desision Making - Diagnostic Testing Diagnostic test were ordered, analyzed, and reviewed by me: Yes Radiological Interpretation: Interpreted by me, Reviewed by me - Risk of complications The pt has a high risk of morbidity or mortality based on: Decision regarding hospitilization or escalation of hosp level of care - Departure Departure Disposition: AMA Clinical Impression: Chest pain Condition: Stable Critical Care Time: No Referrals: PALMA COLON NP [Primary Care Provider] - Follow up with PCP 1 day Instructions: Angina Additional Instructions: Continue with your current medications. Follow-up with your primary care and cardiology for reevaluation. 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 Return to ER for worsening chest pain/difficulty breathing or if having increasing dizziness lightheadedness, numbness tingling focal weakness etc.
[2023-08-31] MEDS ORDERED: DUONEB 0.5-3 MG/3 ml Neb IH ONE (13:06)
[2023-08-31] MEDS: DUONEB 0.5-3 MG/3 ml Neb IH ONE (13:07)
[2023-08-31 13:08] LABS: Absolute Neutrophil Ct (ANC) 3.52 x10^3/uL (1.4-6.9); BASOPHIL % 0.6 % (0.0-0.4); Basophil (Absolute #) 0.04 x10^3/uL (0-0.4); Eosinophil % 1.2 % (0.00-5.0); Eosinophil (Absolute #) 0.08 x10^3/uL (0-0.5); Hematocrit 44.5 % (42-50); Hemoglobin 15.6 g/dL (12.5-18.0); IMMATURE GRAN # 0.02 x10^3u/L (0.00-0.03); IMMATURE GRAN % 0.3 % (0.00-0.4); Lymphocyte (Absolute #) 2.45 x10^3/uL (1.0-4.6); Lymphocytes % 36.9 % (24.0-44.0); Mean Cell Volume 81.2 fL (78-100); Mean Corpuscular Hemoglobin 28.5 pg (26-32); Mean Corpuscular Hgb Concent. 35.1 g/dL (32-36); Mean Platelet Volume 9.9 fL (7.5-11.0); Monocyte (Absolute #) 0.53 x10^3/uL (0.0-1.3); Platelet Count 226 x10^3/uL (150-450); Red Blood Count 5.48 x10^6/uL (4.1-5.6); Red Cell Distribution Width 12.3 % (11.5-14.0); White Blood Count 6.6 x10^3/uL (4.0-10.5)
[2023-08-31 13:25] VITALS: TEMP 97.5
--- NOTE | 2023-08-31 13:27 | XRAY ---
Indication: Short of breath. Comparison: April 16, 2023 Portable chest unchanged again demonstrating minimal left base subsegmental atelectasis/scarring. Remaining heart, lungs, and bony thorax normal.
[2023-08-31 13:30] LABS: ALBUMIN 4.3 g/dL (3.5-5.0); ANION GAP 13.5 MEQ/L (5-15); Calcium 9.8 mg/dL (8.4-10.2); Creatinine 1 0.76 mg/dL (0.66-1.25); EST GLOMERULAR FILTRATION RATE 110.9 ML/MIN; MAGNESIUM 1.7 mg/dL (1.6-2.3); Total Protein 7.8 g/dL (6.3-8.2)
[2023-08-31 14:44] VITALS: O2SAT 100
--- NOTE | 2023-08-31 14:57 | XRAY ---
Indication: Weakness. Multiple contiguous axial images obtained through the head without contrast. Comparison: October 29, 2022 Normal appearing brain parenchyma, ventricles, and bony calvarium for patient's age. Visualized paranasal sinuses and mastoid air cells are clear. Impression: Continued normal CT head without contrast exam.
[2023-08-31 15:05] VITALS: BP 154/114; PULSE 68; RESP 17
== END 2023-08-31 15:24 | disposition left against medical advice (07) ==
LOC: ED 12:27
DX: R07.9 Chest pain, unspecified (principal); R51.9 Headache, unspecified; I10 Essential (primary) hypertension; E11.9 Type 2 diabetes mellitus without complications; Z79.4 Long term (current) use of insulin; Z79.02 Long term (current) use of antithrombotics/antiplatelets
CPT/HCPCS: 36000; 36415; 70450; 71045; 80053; 83605; 83735; 83880; 84484; 85025; 85379; 93005; 93041; 94640; 99284; A9270-GY

== ENCOUNTER 2024-02-29 19:28 | Emergency (ER) | payer OTHER ==
[2024-02-29 19:52] VITALS: RESP 16; TEMP 97.2
--- NOTE | 2024-02-29 19:55 | ERPHSYRPT ---
- History of Present Illness Time Seen by Provider: 02/29/24 19:51 Historian: patient Physician History: Patient is 48-year-old male with significant past medical history of coronary artery disease, left cerebrovascular accident causing right side weakness history of angiogram which did reveal two-vessel's disease started having periumbilical and right lower quadrant abdominal pain for which patient went to [facility] where the blood tests were done they were all negative but his pain got worse today so he came back to the emergency room. He was complaining of pain more in the right lower inguinal area as well as right periumbilical area there was no radiation of the pain. Patient denies any nausea vomiting diarrhea constipation blood in the stool or urine. Patient also denies any chest pain headache constipation shortness of breath dizziness palpitation. Timing/Duration: today Activities at Onset: none Quality: dullness Abdominal Pain Onset Location: RLQ, periumbilical Pain Radiation: no radiation Severity of Pain-Max: mild Severity of Pain-Current: mild Modifying Factors: Improves With: nothing Associated Symptoms: denies symptoms Previous symptoms: no prior history Body Map: 1 - area of pain Allergies/Adverse Reactions: No Known Drug Allergies Allergy (Verified 02/29/24 19:33) Home Medications: Losartan Potassium 50 mg [Cozaar 50 MG] 50 mg PO DAILY 10/11/13 [History] Clopidogrel Bisulfate [Clopidogrel] 75 mg PO DAILY 08/31/23 [History] Aspirin EC 81 mg [Ecotrin 81 mg] 81 mg PO DAILY 02/29/24 [History] Atorvastatin Calcium 80 mg PO DAILY 02/29/24 [History] Empagliflozin [Jardiance] 25 mg PO DAILY 02/29/24 [History] Escitalopram Oxalate 5 mg PO DAILY 02/29/24 [History] Evolocumab [Repatha Syringe] 140 mg SQ UD 02/29/24 [History] Insulin Glargine [Lantus Insulin] 24 unit SQ DAILY 02/29/24 [History] Hx Tetanus, Diphtheria Vaccination/Date Given: Yes Hx Influenza Vaccination/Date Given: No Hx Pneumococcal Vaccination/Date Given: Yes Travel Risk - Emerging Infectious Disease Are you exhibiting symptoms associated with any current EIDs: No - Review of Systems Constitutional: No Fever, No Chills Eyes: No Symptoms Ears, Nose, & Throat: No Symptoms Respiratory: No Cough, No Dyspnea Cardiac: No Chest Pain, No Edema, No Syncope Abdominal/Gastrointestinal: Abdominal Pain, No Nausea, No Vomiting, No Diarrhea, No Constipation, No Hematemesis, No Hematochezia, No Melena, No Dysphagia, No Appetite Changes Genitourinary Symptoms: No Dysuria Musculoskeletal: No Back Pain, No Neck Pain Skin: No Rash Neurological: No Dizziness, No Focal Weakness, No Sensory Changes Psychological: No Symptoms Endocrine: No Symptoms All Other Systems: Reviewed and Negative - Past Medical History Pertinent Past Medical History: Yes Neurological History: Stroke ENT History: Other Cardiac History: Angina, Coronary Artery Disease, Hypertension Respiratory History: No Pertinent History Endocrine Medical History: Diabetes Type II Musculoskeletal History: No Pertinent History GI Medical History: Diverticulosis, GERD, Gallbladder Disease History: No Pertinent History Psycho-Social History: No Pertinent History Male Reproductive Disorders: No Pertinent History Other Medical History: PMH: SEVERE CORONARY DISESE (CANNOT DO A STENT D/T PLACEMENT),. PSH: 9 EYE SURGERIES, 3 SHOULDER SURGERIES, TONSILLECTOMY, B CARPAL TUNNEL, GALL BLADDER - Past Surgical History Past Surgical History: Yes Neuro Surgical History: No Pertinent History Cardiac: Cardiac Catheterization Respiratory: No Pertinent History Gastrointestinal: Cholecystectomy Genitourinary: No Pertinent History Musculoskeletal: Orthopedic Surgery Male Surgical History: No Pertinent History Other Surgical History: EYE SURGERY X9,shoulder x3 - 2 on R, 1 on L - Social History Smoking Status: Never smoker Exposure to second hand smoke: Yes Drug Use: none Patient Lives Alone: Yes - Social Determinants of Health Will the patient participate in the screening: Yes Do you worry about a steady place to live?: No In the past 12 months,have you had to go without utilities?: No Transportation Issues: No Has anyone in your support network made you feel unsafe?: No Have you or anyone in your house had to go without enough: No - Nursing Vital Signs Nursing Vital Signs: Initial Vital Signs Temperature 97.2 F 02/29/24 19:32 Pulse Rate 84 02/29/24 19:32 Respiratory Rate 16 02/29/24 19:32 Blood Pressure 141/83 02/29/24 19:32 O2 Sat by Pulse Oximetry 98 02/29/24 19:32 Pain Scale Pain Intensity 6 - Physical Exam General Appearance: no apparent distress, alert Eye Exam: PERRL/EOMI, eyes nml inspection Ears, Nose, Throat Exam: normal ENT inspection, pharynx normal, moist mucous membranes Neck Exam: normal inspection, non-tender, supple, full range of motion Respiratory Exam: normal breath sounds, lungs clear, No respiratory distress Cardiovascular Exam: regular rate/rhythm, normal heart sounds Gastrointestinal/Abdomen Exam: soft, normal bowel sounds, tenderness (mild, RLQ), No mass Rectal Exam: deferred Back Exam: normal inspection, normal range of motion, No CVA tenderness, No vertebral tenderness Extremity Exam: normal inspection, normal range of motion, pelvis stable Neurologic Exam: alert, oriented x 3, cooperative, normal mood/affect, nml cerebellar function, sensation nml, No motor deficits Skin Exam: normal color, warm, dry SpO2 Interpretation: normal O2 Delivery: Room Air - Course Nursing assessment & vital signs reviewed: Yes EKG Interpreted by Me: Sinus Rhythm - CT Exams Abdomen/Pelvis CT Interpretation: Tele-radiologist Report (no significant findings), Normal Appendix, No appendicitis Ordered Tests: Active Orders 24 hr Category Date Time Status EKG-ER Only STAT Care 02/29/24 19:49 Active IV Insertion STAT Care 02/29/24 20:00 Active ABDOMEN AND PELVIS W CONTRAST [CT] Stat Exams 02/29/24 20:21 Taken UA W/RFX UR CULTURE Stat Lab 02/29/24 21:10 Completed Urine Triage Profile Stat Lab 02/29/24 21:10 Completed Medication Summary Discontinued Medications Generic Name Dose Route Start Last Admin Trade Name Jocelyn PRN Reason Stop Dose Admin Sodium Chloride 1,000 mls @ 999 mls/hr 02/29/24 19:49 02/29/24 21:12 Sodium Chloride 0.9% 1000 Ml IV 02/29/24 20:49 Infused .Q1H1M STA Infusion Sodium Chloride Confirm 02/29/24 19:58 Sodium Chloride 0.9% 1000 Ml Administered 02/29/24 19:59 Dose 1,000 mls @ ud .ROUTE .K-MED ONE Lab/Rad Data: Laboratory Results 11/14/24 11/14/24 Range/Units 21:10 21:10 Urine Color Yellow (Yellow) Urine Appearance Clear (Clear) Urine pH 5.0 (4.6-8.0) Ur Specific [place] >=1.030 A (1.005-1.030) Urine Protein Negative (Negative) Urine Glucose (UA) >=1000 A (Negative) mg/dL Urine Ketones Negative (Negative) Urine Blood Negative (Negative) Urine Nitrite Negative (Negative) Urine Bilirubin Negative (Negative) Urine Urobilinogen 0.2 (0.2) mg/dL Ur Leukocyte Esterase Negative (Negative) U Hyaline Cast (Auto) NONE SEEN (0-2) /LPF Urine Microscopic RBC 0-2 (0-5) /HPF Urine Microscopic WBC 0-2 (0-5) /HPF Ur Epithelial Cells None Seen (None Seen) /HPF Urine Bacteria None Seen (None Seen) /HPF Urine Culture Reflexed NO (NO) Urine Opiates Level NEGATIVE (NEGATIVE) Ur Methadone NEGATIVE (NEGATIVE) Urine Barbiturates NEGATIVE (NEGATIVE) Ur Phencyclidine (PCP) NEGATIVE (NEGATIVE) Urine Amphetamine NEGATIVE (NEGATIVE) U Benzodiazepine Level NEGATIVE (NEGATIVE) Urine Cocaine NEGATIVE (NEGATIVE) Urine Marijuana (THC) NEGATIVE (NEGATIVE) - Progress Progress: improved, pain not gone completely Counseled pt/family regarding: lab results, diagnosis, need for follow-up, rad results Medical Desision Making - Diagnostic Testing Diagnostic test were ordered, analyzed, and reviewed by me: Yes Radiological Interpretation: Teleradiologist Report - Risk of complications Minimal Risk: Minimal risk of morbidity - Departure Departure Disposition: Home Clinical Impression: Abdominal pain in male Condition: Stable Critical Care Time: No Referrals: PALMA COLON NP [Primary Care Provider] - Follow up/PCP as directed Instructions: Abdominal pain Additional Instructions: Discharge/Care Plan SUZI LOPEZ was seen on 02/29/24 in the Emergency Room. The patient was counseled regarding Diagnosis,Lab results, Imaging studies, need for follow up and when to return to the Emergency Room. Prescriptions given: Discharge Note I have spoken with the patient and/or caregivers. I have explained the patient's condition, diagnosis and treatment plan based on the information available to me at this time. I have answered the patient's and/or caregiver's questions and addressed any concerns. The patient and/or caregivers have as good understanding of the patient's diagnosis, condition and treatment plan as can be expected at this point. The vital signs have been stable. The patient's condition is stable and appropriate for discharge from the emergency department. The patient will pursue further outpatient evaluation with the primary care physician or other designated or consulting physician as outlined in the disch arge instructions. The patient and/or caregivers are agreeable to this plan of care and follow-up instructions have been explained in detail. The patient and/or caregivers have received these instruction. The patient/and or caregivers are aware that any significant change in condition or worsening of symptoms should prompt an immediate return to this or the closest emergency department or call 911. SUZI LOPEZ was seen on 02/29/24 n the Emergency Room. At that time you were treated for an emergent condition, during your visit Laboratory, Radiology and/or other procedures may have been ordered. It is very important that you follow-up with your Primary Care Physician PALMA COLON within the next 24-48 hours to review your Emergency Room visit and the final results of testing that was ordered. Some test results such as Urine Cultures, Blood Cultures, and other cultures if ordered will not be finalized for 24-48 hours. If you do not have a Primary Care Provider please call the medical records d epartment at [phone] ext [phone] to obtain a copy of your results or you may sign into our patient portal to obtain these results by visiting us @ [email or web address] and completing the following steps: 1. Click on the Patient Portal link 2. Click the Patient Self Enrollment Link to complete the enrollment form and entering your 3. Once the enrollment form is completed you will receive an email with a temporary ID and password at the email address you provided. 4. Next choose a user name and password. Your user name must be at least 4 characters long and your password must be at least 4 characters long. 5. Choose a security question from the list and provide your answer to the question. If you already have signed into the Health Portal you may access your Health Care Information 07/11 by the following steps: 1. Login to our website @ [email or web address] 2. Enter your original user name and password. FAQS The [facility] Health Portal is an online tool that contains your Lab Results, Radiology Reports, Visit History, Discharge Instructions and Health Summary Lab and Radiology Results will not be available for 72 hours on the portal. The Portal is a secure site, passwords are encryted and URLs are re-written so they cannot be copied and pasted. You and authorized family members are the only ones who can access your Portal. Also there is a timeout feature that protects your information if you leave the Portal page open. If you have technical difficulty please use the Contact Us link on the page this will allow you to submit any questions you have regarding the Portal or you may contact the Medical Record Department at [phone].
[2024-02-29] MEDS ORDERED: Sodium Chloride 0.9% 1000 ML 1,000 ML ONE (19:58)
[2024-02-29] MEDS: Sodium Chloride 0.9% 1000 ML 1,000 ML IV STA (20:01)
[2024-02-29 21:21] LABS: Appearance Clear (Clear); Bacteria None Seen /HPF (None Seen); Bilirubin Negative (Negative); Blood Negative (Negative); Epithelial Cells None Seen /HPF (None Seen); Glucose, Urine >=1000 mg/dL (Negative); Hyaline Casts NONE SEEN /LPF (0-2); Ketones Negative (Negative); Leukocyte Esterase Negative (Negative); Nitrite Negative (Negative); Protein,Urine Dip Negative (Negative); RBC 0-2 /HPF (0-5); Specific Gravity >=1.030 (1.005-1.030); Urobilinogen 0.2 mg/dL (0.2); WBC 0-2 /HPF (0-5)
[2024-02-29 21:32] LABS: Amphetamine,Urine NEGATIVE (NEGATIVE); Barbiturate,Urine NEGATIVE (NEGATIVE); Benzodiazepine,Urine NEGATIVE (NEGATIVE); Cocaine,Urine NEGATIVE (NEGATIVE); Methadone,Urine NEGATIVE (NEGATIVE); Opiate,Urine NEGATIVE (NEGATIVE); PCP,Urine NEGATIVE (NEGATIVE); THC,Urine NEGATIVE (NEGATIVE)
[2024-02-29 21:42] VITALS: BP 134/84; PULSE 78; O2SAT 97
--- NOTE | 2024-03-01 08:20 | XRAY ---
Indication: Right lower abdomen pain/pressure. Multiple contiguous axial images obtained through the abdomen and pelvis using 80 cc Isovue 370 contrast. Comparison: March 05, 2020 Lung bases demonstrates minimal dependent atelectasis. No infiltrate or effusion. Heart not enlarged. Stable small hiatal hernia. Noncontrasted stomach and bowel loops appear nonobstructed with normal appendix. Again minimal sigmoid diverticulosis and cholecystectomy. No free fluid/air. Remaining liver, pancreas, spleen, adrenal glands, kidneys, ureters, and bladder are unremarkable. Again minimal aortic calcifications. No AAA or pathological retroperitoneal lymphadenopathy. Osseous structures intact again with minimal genetic changes throughout thoracolumbar spine. No ventral or inguinal hernias. Impression: 1. Again sigmoid diverticulosis and multilevel degenerative spondylosis. 2. Remaining CT abdomen/pelvis with contrast exam is negative.
== END 2024-02-29 21:47 | disposition home or self-care (01) ==
LOC: ED 19:28
DX: R10.31 Right lower quadrant pain (principal); I25.10 Atherosclerotic heart disease of native coronary artery without angina pectoris; I10 Essential (primary) hypertension; Z86.73 Personal history of transient ischemic attack (TIA), and cerebral infarction without residual deficits; Z79.899 Other long term (current) drug therapy
CPT/HCPCS: 74177; 80307; 81001; 93005; 96360; 99284

== ENCOUNTER 2024-03-10 17:48 | Emergency (ER) | payer OTHER ==
[2024-03-10 17:57] VITALS: TEMP 96.8
[2024-03-10 18:45] LABS: Absolute Neutrophil Ct (ANC) 2.36 x10^3/uL (1.78-5.38); BASOPHIL % 0.4 % (0.2-1.2); Basophil (Absolute #) 0.02 x10^3/uL (0.01-0.08); Eosinophil % 1.3 % (0.8-7.0); Eosinophil (Absolute #) 0.07 x10^3/uL (0.04-0.54); Hemoglobin 14.5 g/dL (13.7-17.5); IMMATURE GRAN # 0.01 x10^3u/L (0.001-0.031); IMMATURE GRAN % 0.2 % (0.001-0.429); Lymphocyte (Absolute #) 2.38 x10^3/uL (1.32-3.57); Lymphocytes % 44.9 % (21.8-53.1); Mean Cell Volume 80.5 fL (79.0-92.2); Mean Corpuscular Hemoglobin 27.8 pg (25.7-32.2); Mean Corpuscular Hgb Concent. 34.5 g/dL (32.3-36.5); Mean Platelet Volume 9.7 fL (9.4-12.4); Monocyte (Absolute #) 0.46 x10^3/uL (0.30-0.82); Monocytes % 8.7 % (5.3-12.2); Neutrophil % 44.5 % (34.0-67.9); Platelet Count 175 x10^3/uL (163-337); Red Blood Count 5.22 x10^6/uL (4.63-6.08); Red Cell Distribution Width 12.7 % (11.6-14.4); White Blood Count 5.3 x10^3/uL (4.23-9.07)
--- NOTE | 2024-03-10 19:07 | ERPHSYRPT ---
- History of Present Illness Time Seen by Provider: 03/10/24 17:51 Source: patient Exam Limitations: no limitations Patient Subjective Stated Complaint: pt states that his BP at home was 167/101 and has a hx of stroke Triage Nursing Assessment: Pt brought self to the ER, hypertensive, denies pain, pulses normal, skin n/w/d, denies N&V, denies chest pain, no difficulty breathing, doesn't appear to be in any distress Physician History: 48-year-old male with history of hypertension, hyperlipidemia, diabetes mellitus, recent stroke with right-sided residual weakness presented to the ER with elevated blood pressure. Patient reports he was checking his blood pressure at home and it was in 160s. Patient denies having any headache, blurry vision, feeling dizzy lightheaded, difficulty speech, new numbness weakness but what he has at his baseline. Denies any chest pain palpitations or shortness of breath. Patient blood pressure initially on presentation in the ER is in 200s but improved to 170s without any medication after few minutes. Patient reports he has been really anxious lately with his blood pressure. Allergies/Adverse Reactions: No Known Drug Allergies Allergy (Verified 03/10/24 17:58) Home Medications: Losartan Potassium 50 mg [Cozaar 50 MG] 100 mg PO DAILY 10/11/13 [History] Clopidogrel Bisulfate [Clopidogrel] 75 mg PO DAILY 08/31/23 [History] Aspirin EC 81 mg [Ecotrin 81 mg] 81 mg PO DAILY 02/29/24 [History] Atorvastatin Calcium 80 mg PO DAILY 02/29/24 [History] Empagliflozin [Jardiance] 25 mg PO DAILY 02/29/24 [History] Escitalopram Oxalate 5 mg PO DAILY 02/29/24 [History] Evolocumab [Repatha Syringe] 140 mg SQ UD 02/29/24 [History] Insulin Glargine [Lantus Insulin] 24 unit SQ DAILY 02/29/24 [History] Ezetimibe 10 mg [Zetia 10 MG] 10 mg PO DAILY 03/10/24 [History] Hx Tetanus, Diphtheria Vaccination/Date Given: Yes Hx Influenza Vaccination/Date Given: No Hx Pneumococcal Vaccination/Date Given: Yes Travel Risk - International Travel Have you traveled outside of the country in past 3 weeks: No - Emerging Infectious Disease Are you exhibiting symptoms associated with any current EIDs: No Symptoms: Abdominal Pain - Review of Systems Constitutional: No Symptoms Eyes: No Symptoms Ears, Nose, & Throat: No Symptoms Respiratory: No Symptoms Cardiac: No Symptoms Abdominal/Gastrointestinal: No Symptoms Genitourinary Symptoms: No Symptoms Musculoskeletal: Arthralgias Skin: No Symptoms Neurological: Paralysis Psychological: No Symptoms Endocrine: No Symptoms - Past Medical History Pertinent Past Medical History: Yes Neurological History: Stroke ENT History: Other Cardiac History: Angina, Coronary Artery Disease, Hypertension Respiratory History: No Pertinent History Endocrine Medical History: Diabetes Type II Musculoskeletal History: No Pertinent History GI Medical History: Diverticulosis, GERD, Gallbladder Disease History: No Pertinent History Psycho-Social History: No Pertinent History Male Reproductive Disorders: No Pertinent History Other Medical History: PMH: SEVERE CORONARY DISESE (CANNOT DO A STENT D/T PLACEMENT),. PSH: 9 EYE SURGERIES, 3 SHOULDER SURGERIES, TONSILLECTOMY, B CARPAL TUNNEL, GALL BLADDER - Past Surgical History Past Surgical History: Yes Neuro Surgical History: No Pertinent History Cardiac: Cardiac Catheterization Respiratory: No Pertinent History Gastrointestinal: Cholecystectomy Genitourinary: No Pertinent History Musculoskeletal: Orthopedic Surgery Male Surgical History: No Pertinent History Other Surgical History: EYE SURGERY X9,shoulder x3 - 2 on R, 1 on L - Social History Smoking Status: Never smoker Exposure to second hand smoke: Yes Drug Use: none Patient Lives Alone: Yes - Social Determinants of Health Will the patient participate in the screening: Yes Do you worry about a steady place to live?: No Do you have any problems with any of the following?: No known problems In the past 12 months,have you had to go without utilities?: No Transportation Issues: No Has anyone in your support network made you feel unsafe?: No Have you or anyone in your house had to go without enough: No - Nursing Vital Signs Nursing Vital Signs: Initial Vital Signs Temperature 96.8 F 03/10/24 17:53 Pulse Rate 79 03/10/24 17:53 Blood Pressure 182/105 03/10/24 17:53 O2 Sat by Pulse Oximetry 99 03/10/24 17:53 Pain Scale Pain Intensity 0 - Physical Exam General Appearance: no apparent distress, alert, anxiety Eye Exam: PERRL/EOMI Ears, Nose, Throat Exam: normal ENT inspection Neck Exam: normal inspection, non-tender, supple, full range of motion Respiratory Exam: normal breath sounds, lungs clear Cardiovascular Exam: regular rate/rhythm, normal heart sounds Gastrointestinal/Abdomen Exam: soft, normal bowel sounds, No tenderness Back Exam: normal inspection, normal range of motion Extremity Exam: normal inspection, normal range of motion Neurologic Exam: alert, oriented x 3, cooperative, histology tech II-XII nml as tested, normal mood/affect, sensation nml, motor deficits SpO2 Interpretation: normal SpO2: 99 O2 Delivery: Room Air - Course EKG Interpreted by Me: RATE (72), Sinus Rhythm, NORMAL AXIS, NORMAL INTERVALS, NORMAL QRS Ordered Tests: Active Orders 24 hr Category Date Time Status Net Software Architect STAT Care 03/10/24 18:22 Completed EKG-ER Only STAT Care 03/10/24 18:22 Completed CHEST 1 VIEW (PORTABLE) Stat Exams 03/10/24 18:39 Completed CBC W DIFF Stat Lab 03/10/24 18:41 Completed CMP Stat Lab 03/10/24 18:41 Completed NT PRO BNPII Stat Lab 03/10/24 18:41 Completed TROPONIN Q4H Lab 03/10/24 18:41 Completed Medication Summary Discontinued Medications Generic Name Dose Route Start Last Admin Trade Name Kamaljitq PRN Reason Stop Dose Admin Clonidine 0.1 mg 03/10/24 19:24 03/10/24 19:49 Clonidine Hcl 0.1 Mg Tablet PO 03/10/24 19:25 0.1 mg STAT ONE Administration Clonidine Confirm 03/10/24 19:48 Clonidine Hcl 0.1 Mg Tablet Administered 03/10/24 19:49 Dose 0.1 mg .ROUTE .K-MED ONE Lab/Rad Data: Laboratory Result Diagrams 03/10/24 18:41 03/10/24 18:41 Laboratory Results 03/10/24 03/10/24 03/10/24 Range/Units 18:41 18:41 18:41 WBC 5.3 (4.23-9.07) x10^3/uL RBC 5.22 (4.63-6.08) x10^6/uL Hgb 14.5 (13.7-17.5) g/dL Hct 42.0 (40.1-51.0) % MCV 80.5 (79.0-92.2) fL MCH 27.8 (25.7-32.2) pg MCHC 34.5 (32.3-36.5) g/dL RDW 12.7 (11.6-14.4) % Plt Count 175 (163-337) x10^3/uL MPV 9.7 (9.4-12.4) fL Gran % 44.5 (34.0-67.9) % Immature Gran % (Auto) 0.2 (0.001-0.429) % Nucleat RBC Rel Count 0.0 (0.00-0.2) % Eos # (Auto) 0.07 (0.04-0.54) x10^3/uL Immature Gran # (Auto) 0.01 (0.001-0.031) x10^3u/L Absolute Lymphs (auto) 2.38 (1.32-3.57) x10^3/uL Absolute Monos (auto) 0.46 (0.30-0.82) x10^3/uL Absolute Nucleated RBC 0.00 (0.00-0.012) x10^3u/L Lymphocytes % 44.9 (21.8-53.1) % Monocytes % 8.7 (5.3-12.2) % Eosinophils % 1.3 (0.8-7.0) % Basophils % 0.4 (0.2-1.2) % Absolute Granulocytes 2.36 (1.78-5.38) x10^3/uL Basophils # 0.02 (0.01-0.08) x10^3/uL Sodium 139 (135-145) mmol/L Potassium 3.7 (3.5-5.1) mmol/L Chloride 104 (98-107) mmol/L Carbon Dioxide 28 (22-30) mmol/L Anion Gap 10.8 (5-15) MEQ/L BUN 13 (9-20) mg/dL Creatinine 0.79 (0.66-1.25) mg/dL Estimated GFR 108.9 ML/MIN Glucose 123 H (74-106) mg/dL Calcium 9.1 (8.4-10.2) mg/dL Total Bilirubin 0.60 (0.2-1.3) mg/dL AST 24 (17-59) U/L ALT 24 (0-50) U/L Alkaline Phosphatase 65 (38-126) U/L Troponin I < 0.012 (0.000-0.033) ng/mL NT-Pro-B Natriuret Pep 309 (<300) pg/mL Serum Total Protein 6.8 (6.3-8.2) g/dL Albumin 3.9 (3.5-5.0) g/dL - Progress Progress: improved, re-examined Progress Note: 03/10/24 20:30 GFDGF Counseled pt/family regarding: lab results, diagnosis, need for follow-up, rad results Medical Desision Making - Diagnostic Testing Diagnostic test were ordered, analyzed, and reviewed by me: Yes Radiological Interpretation: Reviewed by me, Teleradiologist Report - Risk of complications The pt has a mod risk of morbidity or mortality based on: Need for prescription drug management - Departure Departure Disposition: Home Clinical Impression: Uncontrolled hypertension Condition: Stable Critical Care Time: No Referrals: PALMA COLON, NANDA [Primary Care Provider] - Follow up with PCP 1 day Instructions: Malignant Hypertension (DC) Additional Instructions: Keep a blood pressure log. Follow-up with primary care for reevaluation to see if needs adjustment in dosage of medications. Take clonidine only as needed if blood pressure is greater than 160 systolic every 8-12 hour as needed only. Prescriptions: Clonidine HCl 0.1 mg [Clonidine 0.1 mg Tablet] 0.1 mg PO Q12H PRN PRN 10 Days #10 tablet PRN Reason: Hypertension
[2024-03-10 19:27] LABS: ALBUMIN 3.9 g/dL (3.5-5.0); ANION GAP 10.8 MEQ/L (5-15); BILIRUBIN,TOTAL 0.6 mg/dL (0.2-1.3); Calcium 9.1 mg/dL (8.4-10.2); Creatinine 1 0.79 mg/dL (0.66-1.25); EST GLOMERULAR FILTRATION RATE 108.9 ML/MIN; Potassium 3.7 mmol/L (3.5-5.1); Total Protein 6.8 g/dL (6.3-8.2)
[2024-03-10 19:38] LABS: NT PRO BNPII 309 pg/mL (<300); TROPONIN < 0.012 ng/mL (0.000-0.033)
--- NOTE | 2024-03-10 19:42 | XRAY ---
Indication: Hypertension. Comparison: August 31, 2023 Portable chest unchanged again demonstrating minimal left base subsegmental atelectasis/scarring. Remaining heart, lungs, and bony thorax normal.
[2024-03-10] MEDS ORDERED: CLONIDINE 0.1 MG TABLET ONE (19:48)
[2024-03-10] MEDS: CLONIDINE 0.1 MG TABLET PO ONE (19:49)
[2024-03-10 20:13] VITALS: BP 168/95; PULSE 70; RESP 15
[2024-03-10 20:32] VITALS: O2SAT 99
== END 2024-03-10 20:56 | disposition home or self-care (01) ==
LOC: ED 17:48
DX: I10 Essential (primary) hypertension (principal); E78.5 Hyperlipidemia, unspecified; E11.9 Type 2 diabetes mellitus without complications; Z79.02 Long term (current) use of antithrombotics/antiplatelets; Z79.84 Long term (current) use of oral hypoglycemic drugs; Z79.4 Long term (current) use of insulin; Z79.899 Other long term (current) drug therapy
CPT/HCPCS: 36415; 71045; 80053; 83880; 84484; 85025; 93005; 93041; 99284; 99285; A9270-GY

== ENCOUNTER 2024-04-03 12:05 | Emergency (ER) | payer OTHER ==
--- NOTE | 2024-04-03 12:07 | ERPHSYRPT ---
- History of Present Illness Time Seen by Provider: 04/03/24 12:07 Source: patient Exam Limitations: no limitations Physician History: This is a right handed 48-year-old white male patient who is diabetic and is on Plavix secondary to a stroke in the past and presents with history of cat scratch and abrasion secondary to woodworking in the last couple of days. Last evening he noticed there was hand swelling and slight tenderness and redness to the dorsal aspect of his right hand in the area of the cat scratch and the abrasions from the woodworking. He did remove an embedded piece of wood from one of the abrasion sites. Patient is currently on amoxicillin to treat an ear infection. He has not had fevers. His tetanus status is not up-to-date and he is concerned about this and wants to update his tetanus status. Patient has a history of hyperlipidemia, hypertension and diabetes. Occurred: days ago (Proximately 2 days ago) Method of Injury: other (Cat scratch abrasion and abrasion from working with a wood) Severity of Pain-Max: mild Severity of Pain-Current: mild Extremities Pain Location: hand: right (Mild dorsal aspect right hand swelling, redness and tenderness) Modifying Factors: Improves With: nothing Associated Symptoms: none Allergies/Adverse Reactions: No Known Drug Allergies Allergy (Verified 04/03/24 12:19) Home Medications: Clopidogrel Bisulfate [Clopidogrel] 75 mg PO DAILY 08/31/23 [History] Aspirin EC 81 mg [Ecotrin 81 mg] 81 mg PO DAILY 02/29/24 [History] Atorvastatin Calcium 80 mg PO DAILY 02/29/24 [History] Escitalopram Oxalate 10 mg PO HS 02/29/24 [History] Evolocumab [Repatha Syringe] 140 mg SQ UD 02/29/24 [History] Insulin Glargine [Lantus Insulin] 24 unit SQ DAILY 02/29/24 [History] Ezetimibe 10 mg [Zetia 10 MG] 10 mg PO DAILY 03/10/24 [History] Losartan/Hydrochlorothiazide [Losartan-Hctz 100-25 mg Tab] 1 tab PO DAILY 04/03/24 [History] Hx Tetanus, Diphtheria Vaccination/Date Given: Yes Hx Influenza Vaccination/Date Given: No Hx Pneumococcal Vaccination/Date Given: Yes Travel Risk - International Travel Have you traveled outside of the country in past 3 weeks: No - Emerging Infectious Disease Are you exhibiting symptoms associated with any current EIDs: No Symptoms: Abdominal Pain - Review of Systems Constitutional: No Symptoms Eyes: No Symptoms Ears, Nose, & Throat: No Symptoms Respiratory: No Symptoms Cardiac: No Symptoms Abdominal/Gastrointestinal: No Symptoms Genitourinary Symptoms: No Symptoms Musculoskeletal: Injury (Dorsal aspect right hand) Skin: Cellulitis (Swelling, mild tenderness dorsal aspect right hand) Neurological: No Symptoms Psychological: No Symptoms Endocrine: No Symptoms Hematologic/Lymphatic: No Symptoms Immunological/Allergic: No Symptoms All Other Systems: Reviewed and Negative - Past Medical History Pertinent Past Medical History: Yes Neurological History: Stroke ENT History: Other Cardiac History: Angina, Coronary Artery Disease, Hypertension Respiratory History: No Pertinent History Endocrine Medical History: Diabetes Type II Musculoskeletal History: No Pertinent History GI Medical History: Diverticulosis, GERD, Gallbladder Disease History: No Pertinent History Psycho-Social History: No Pertinent History Male Reproductive Disorders: No Pertinent History Other Medical History: PMH: SEVERE CORONARY DISESE (CANNOT DO A STENT D/T PLACEMENT),. PSH: 9 EYE SURGERIES, 3 SHOULDER SURGERIES, TONSILLECTOMY, B CARPAL TUNNEL, GALL BLADDER - Past Surgical History Past Surgical History: Yes Neuro Surgical History: No Pertinent History Cardiac: Cardiac Catheterization Respiratory: No Pertinent History Gastrointestinal: Cholecystectomy Genitourinary: No Pertinent History Musculoskeletal: Orthopedic Surgery Male Surgical History: No Pertinent History Other Surgical History: EYE SURGERY X9,shoulder x3 - 2 on R, 1 on L - Social History Smoking Status: Never smoker Exposure to second hand smoke: Yes Drug Use: none Patient Lives Alone: Yes - Social Determinants of Health Will the patient participate in the screening: Yes Do you worry about a steady place to live?: No In the past 12 months,have you had to go without utilities?: No Transportation Issues: No Has anyone in your support network made you feel unsafe?: No Have you or anyone in your house had to go without enough: No - Nursing Vital Signs Nursing Vital Signs: Initial Vital Signs Temperature 96.3 F 04/03/24 12:12 Pulse Rate 89 04/03/24 12:12 Respiratory Rate 18 04/03/24 12:12 Blood Pressure 154/88 04/03/24 12:12 O2 Sat by Pulse Oximetry 100 04/03/24 12:12 Pain Scale Pain Intensity 2 - Physical Exam General Appearance: no apparent distress, alert, anxiety Eyes, Ears, Nose, Throat Exam: normal ENT inspection, moist mucous membranes Neck Exam: normal inspection, non-tender, supple, full range of motion Cardiovascular/Respiratory Exam: chest non-tender, no respiratory distress Abdominal Exam: non-tender Back Exam: normal inspection, normal range of motion, No CVA tenderness, No vertebral tenderness Shoulder Exam: normal inspection, non-tender, no evidence of injury, normal ROM Elbow/Forearm Exam: normal inspection, non-tender, no evidence of injury, normal ROM Wrist Exam: normal inspection, non-tender, no evidence of injury, normal ROM Hand Exam: normal ROM, abrasions (Dorsal aspect right hand), soft tissue tenderness (Dorsal aspect right hand), swelling (Dorsal aspect right hand), No bone tenderness DTR - Upper Extremity Exam: bicep (R): 0 Neuro/Tendon Exam: normal sensation, normal motor functions, normal tendon functions, no evidence tendon injury Mental Status Exam: alert, oriented x 3, cooperative Skin Exam: other (See above extremity section) SpO2 Interpretation: normal O2 Delivery: Room Air - Course Nursing assessment & vital signs reviewed: Yes Ordered Tests: Medication Summary Discontinued Medications Generic Name Dose Route Start Last Admin Trade Name Kamaljitq PRN Reason Stop Dose Admin Azithromycin 500 mg 04/03/24 12:50 04/03/24 13:06 Azithromycin 250 Mg Tablet PO 04/03/24 12:51 500 mg STAT ONE Administration Azithromycin Confirm 04/03/24 12:55 Azithromycin 250 Mg Tablet Administered 04/03/24 12:56 Dose 500 mg .ROUTE .STK-MED ONE Diphtheria/Tetanus/Acell Pertussis 0.5 ml 04/03/24 12:48 04/03/24 13:06 Tdap --Diph,Pertuss(Acell),Tet Vac/Pf 0.5 Ml Vial IM 04/03/24 12:49 0.5 ml .ONCE ONE Administration Diphtheria/Tetanus/Acell Pertussis Confirm 04/03/24 12:55 Tdap --Diph,Pertuss(Acell),Tet Vac/Pf 0.5 Ml Vial Administered 04/03/24 12:56 Dose 0.5 ml IM .STK-MED ONE - Progress Progress: unchanged Progress Note: 04/03/24 13:22 My medical decision making and the assignment of low complexity to this patient's medical issue today is based on review of the patient's past medical history, review the patient's medication list, reviewed patient drug allergy list, history present illness and physical findings on examination. The workup today does not require any laboratory radiographic studies. Differential diagnosis includes but is not limited to cellulitis right hand, cat scratch right hand, Counseled pt/family regarding: diagnosis, need for follow-up Medical Desision Making - Diagnostic Testing Diagnostic test were ordered, analyzed, and reviewed by me: No - Risk of complications The pt has a mod risk of morbidity or mortality based on: Need for prescription drug management - Departure Departure Disposition: Home Clinical Impression: Cellulitis of right hand Condition: Stable Critical Care Time: No Referrals: PALMA COLON NP [Primary Care Provider] - Follow up/PCP as directed Additional Instructions: Keep the right hand abrasion sites clean daily with soap and water. Take your azithromycin-antibiotics as prescribed. You may stop your amoxicillin at this time. May add Tylenol to control pain. Call your primary care provider today, 04/03/2024, to make arrangements for follow-up appointment for further evaluation and management. Prescriptions: Azithromycin 250 mg [Zithromax 250 MG TABLET] 250 mg PO ZPACK #4 tablet
[2024-04-03 12:19] VITALS: RESP 18; TEMP 96.3
[2024-04-03] MEDS ORDERED: Zithromax 250 MG TABLET ONE (12:55)
[2024-04-03] MEDS ORDERED: Adacel Vial IM ONE (12:55)
[2024-04-03] MEDS: Zithromax 250 MG TABLET PO ONE (13:06)
[2024-04-03] MEDS: Adacel Vial IM ONE (13:06)
[2024-04-03 13:10] VITALS: BP 123/70; PULSE 82; O2SAT 98
== END 2024-04-03 13:32 | disposition home or self-care (01) ==
LOC: ED 12:05
DX: L03.113 Cellulitis of right upper limb (principal); Z79.899 Other long term (current) drug therapy; Z79.01 Long term (current) use of anticoagulants
CPT/HCPCS: 90471; 90715; 99282; A9270-GY

== ENCOUNTER 2024-06-26 10:09 | Emergency (ER) | payer OTHER ==
[2024-06-26 10:25] VITALS: TEMP 97.1
[2024-06-26] MEDS ORDERED: ANTIVERT 25 MG ONE (10:55)
[2024-06-26] MEDS: ANTIVERT 25 MG PO ONE (10:56)
[2024-06-26 10:57] LABS: Absolute Neutrophil Ct (ANC) 2.78 x10^3/uL (1.78-5.38); BASOPHIL % 0.5 % (0.2-1.2); Basophil (Absolute #) 0.03 x10^3/uL (0.01-0.08); Eosinophil % 1.1 % (0.8-7.0); Eosinophil (Absolute #) 0.06 x10^3/uL (0.04-0.54); Hematocrit 45.6 % (40.1-51.0); Hemoglobin 15.4 g/dL (13.7-17.5); IMMATURE GRAN # 0.01 x10^3u/L (0.001-0.031); IMMATURE GRAN % 0.2 % (0.001-0.429); Lymphocyte (Absolute #) 2.33 x10^3/uL (1.32-3.57); Lymphocytes % 41.2 % (21.8-53.1); Mean Cell Volume 81.7 fL (79.0-92.2); Mean Corpuscular Hemoglobin 27.6 pg (25.7-32.2); Mean Corpuscular Hgb Concent. 33.8 g/dL (32.3-36.5); Mean Platelet Volume 9.7 fL (9.4-12.4); Monocyte (Absolute #) 0.45 x10^3/uL (0.30-0.82); Platelet Count 261 x10^3/uL (163-337); Red Blood Count 5.58 x10^6/uL (4.63-6.08); Red Cell Distribution Width 13.5 % (11.6-14.4); White Blood Count 5.7 x10^3/uL (4.23-9.07)
[2024-06-26 11:10] LABS: ALBUMIN 4.8 g/dL (3.5-5.0); ANION GAP 17.7 MEQ/L (5-15); BILIRUBIN,TOTAL 0.9 mg/dL (0.2-1.3); Calcium 9.4 mg/dL (8.4-10.2); Creatinine 1 0.99 mg/dL (0.66-1.25); EST GLOMERULAR FILTRATION RATE 93.4 ML/MIN; MAGNESIUM 2.3 mg/dL (1.6-2.3); Potassium 4.1 mmol/L (3.5-5.1); Total Protein 8.4 g/dL (6.3-8.2)
--- NOTE | 2024-06-26 11:31 | XRAY ---
Indication: Dizziness. Mastoiditis. Multiple contiguous axial images obtained through the head without contrast. Comparison: October 29, 2022 and August 31, 2023 Normal appearing brain parenchyma, ventricles, and bony calvarium for patient's age. Visualized paranasal sinuses and mastoid air cells are clear. Impression: Continued normal CT head without contrast exam.
--- NOTE | 2024-06-26 11:33 | XRAY ---
Indication: Dizziness. Mastoiditis. Comparison: March 10, 2024 Portable chest unchanged again demonstrating normal heart and lungs with minimal left base subsegmental atelectasis/scarring. Bony thorax intact. No new/acute findings.
[2024-06-26 12:06] LABS: Appearance Clear (Clear); Bacteria None Seen /HPF (None Seen); Bilirubin Negative (Negative); Blood Negative (Negative); Epithelial Cells None Seen /HPF (None Seen); Glucose, Urine >=1000 mg/dL (Negative); Hyaline Casts NONE SEEN /LPF (0-2); Ketones Trace (Negative); Leukocyte Esterase Negative (Negative); Nitrite Negative (Negative); Ph 5.5 (4.6-8.0); Protein,Urine Dip Negative (Negative); RBC 0-2 /HPF (0-5); Specific Gravity >=1.030 (1.005-1.030); Urobilinogen 0.2 mg/dL (0.2); WBC 0-2 /HPF (0-5)
[2024-06-26 13:03] VITALS: O2SAT 98
--- NOTE | 2024-06-26 13:40 | ERPHSYRPT ---
- History of Present Illness Time Seen by Provider: 06/26/24 10:13 Source: patient Exam Limitations: no limitations Patient Subjective Stated Complaint: intermittent dizziness especially with turning head. ongoing since last night. Triage Nursing Assessment: Pt presents to ED bed 9 A &OX3, ambulatory, answers questions appropriately. Pt c/o intermittent dizziness since 1700 yesterday. States worse when turning head/ looking around. Denies any new numbness, tingling, visual changes, DAVID. PERRLA noted. Pupils 2-3m bilaterally. Pt states he normally does have decreased sensation to Rside of body d/t previous stroke in August. States no new changes to sensation. Skin PWD. Monitor placed on pt, finger stick glucose 91 on arrival. Pt also reports intermittent R ear infection x 6 weeks. States has been on amoxicllan twice over the last 6 weeks for it. Most recent dose was finished 3 days ago. Denies any fevers. No changes to speech. Pt denies any pain. Physician History: 48-year-old male with complicated medical history including coronary artery disease, diabetes mellitus with amputations of toe, hypertension presented in the ER with complaints of dizziness with movements of his head on the right side since yesterday off and on with no new numbness tingling or focal weakness. Patient has a history of stroke with right-sided residual numbness which is not any worse than usual. Denies any weakness. Patient also reports dealing with ear infection for the last 6 weeks and has taken 2 rounds of antibiotics, last 1 finished 2 days ago. Patient reports some spinning sensation with bending over and movements of head. Also reports some pain in the back of right ear but no discharge. Denies any visual changes or difficulty speech. No change in the balance. Allergies/Adverse Reactions: No Known Drug Allergies Allergy (Verified 05/18/24 08:49) Home Medications: Clopidogrel Bisulfate [Clopidogrel] 75 mg PO DAILY 08/31/23 [History] Aspirin EC 81 mg [Ecotrin 81 mg] 81 mg PO DAILY 02/29/24 [History] Escitalopram Oxalate 10 mg PO HS 02/29/24 [History] Evolocumab [Repatha Syringe] 140 mg SQ UD 02/29/24 [History] Insulin Glargine [Lantus Insulin] 24 unit SQ DAILY 02/29/24 [History] Ezetimibe 10 mg [Zetia 10 MG] 10 mg PO DAILY 03/10/24 [History] Losartan/Hydrochlorothiazide [Losartan-Hctz 100-25 mg Tab] 1 tab PO DAILY 04/03/24 [History] Empagliflozin [Jardiance] 1 tab PO DAILY 06/26/24 [History] Hx Tetanus, Diphtheria Vaccination/Date Given: No Hx Influenza Vaccination/Date Given: Yes Hx Pneumococcal Vaccination/Date Given: No Travel Risk - International Travel Have you traveled outside of the country in past 3 weeks: No - Emerging Infectious Disease Are you exhibiting symptoms associated with any current EIDs: No Symptoms: Abdominal Pain - Review of Systems Constitutional: No Symptoms Eyes: No Symptoms Ears, Nose, & Throat: Ear Pain Respiratory: No Symptoms Cardiac: No Symptoms Abdominal/Gastrointestinal: No Symptoms Genitourinary Symptoms: No Symptoms Musculoskeletal: No Symptoms Skin: No Symptoms Neurological: Dizziness Endocrine: No Symptoms Hematologic/Lymphatic: No Symptoms - Past Medical History Pertinent Past Medical History: Yes Neurological History: Stroke ENT History: Other Cardiac History: Angina, Coronary Artery Disease, Hypertension Respiratory History: No Pertinent History Endocrine Medical History: Diabetes Type II Musculoskeletal History: No Pertinent History GI Medical History: Diverticulosis, GERD, Gallbladder Disease History: No Pertinent History Psycho-Social History: No Pertinent History Male Reproductive Disorders: No Pertinent History Other Medical History: PMH: SEVERE CORONARY DISESE (CANNOT DO A STENT D/T PLACEMENT),. PSH: 9 EYE SURGERIES, 3 SHOULDER SURGERIES, TONSILLECTOMY, B CARPAL TUNNEL, GALL BLADDER - Past Surgical History Past Surgical History: Yes Neuro Surgical History: No Pertinent History Cardiac: Cardiac Catheterization Respiratory: No Pertinent History Gastrointestinal: Cholecystectomy Genitourinary: No Pertinent History Musculoskeletal: Orthopedic Surgery Male Surgical History: No Pertinent History Other Surgical History: EYE SURGERY X9,shoulder x3 - 2 on R, 1 on L, R great to e removed Significant Family History: no pertinent family hx - Social History Smoking Status: Never smoker Exposure to second hand smoke: No Drug Use: none - Social Determinants of Health Will the patient participate in the screening: Yes Do you worry about a steady place to live?: Yes Do you have any problems with any of the following?: No known problems In the past 12 months,have you had to go without utilities?: No Transportation Issues: No Has anyone in your support network made you feel unsafe?: No Have you or anyone in your house had to go w/o enough food: No - Nursing Vital Signs Nursing Vital Signs: Initial Vital Signs Pulse Rate 84 06/26/24 10:18 Respiratory Rate 18 06/26/24 10:18 Blood Pressure 139/90 06/26/24 10:18 O2 Sat by Pulse Oximetry 99 06/26/24 10:18 Pain Scale Pain Intensity 0 - Physical Exam General Appearance: no apparent distress, alert Eye Exam: PERRL/EOMI Ears, Nose, Throat Exam: moist mucous membranes, pharyngeal erythema, other (Fluid behind right eardrum) Neck Exam: normal inspection, non-tender, supple, full range of motion Respiratory Exam: normal breath sounds, lungs clear Cardiovascular Exam: regular rate/rhythm, normal heart sounds Gastrointestinal/Abdomen Exam: soft, normal bowel sounds, No tenderness Back Exam: normal inspection, normal range of motion Extremity Exam: normal inspection, normal range of motion Neurologic Exam: alert, oriented x 3, cooperative, systems spec II-XII nml as tested, normal mood/affect, motor deficits, No sensation nml (Decreased sensations of fine touch on the right ) Skin Exam: normal color SpO2 Interpretation: normal SpO2: 98 O2 Delivery: Room Air - Course EKG Interpreted by Me: RATE, Sinus Rhythm, NORMAL AXIS, NORMAL INTERVALS, NORMAL QRS Ordered Tests: Active Orders 24 hr Category Date Time Status Family And Divorce Legal Assistant STAT Care 06/26/24 10:51 Active EKG-ER Only STAT Care 06/26/24 10:50 Active Orthostatic Vital Signs STAT Care 06/26/24 10:52 Active CHEST 1 VIEW (PORTABLE) Stat Exams 06/26/24 10:51 Completed HEAD WITHOUT CONTRAST [CT] Stat Exams 06/26/24 10:51 Completed CBC W DIFF Stat Lab 06/26/24 10:45 Completed CMP Stat Lab 06/26/24 10:45 Completed MAGNESIUM Stat Lab 06/26/24 10:45 Completed POCT GLUCOSE Stat Lab 06/26/24 10:19 Completed TROPONIN Q4H Lab 06/26/24 10:45 Completed TROPONIN Q4H Lab 06/26/24 15:00 Ordered TROPONIN Q4H Lab 06/26/24 19:00 Ordered UA W/RFX UR CULTURE Stat Lab 06/26/24 11:57 Completed Medication Summary Discontinued Medications Generic Name Dose Route Start Last Admin Trade Name Freq PRN Reason Stop Dose Admin Meclizine HCl 25 mg 06/26/24 10:51 06/26/24 10:56 Meclizine Hcl 25 Mg Tablet PO 06/26/24 10:52 25 mg STAT ONE Administration Meclizine HCl Confirm 06/26/24 10:55 Meclizine Hcl 25 Mg Tablet Administered 06/26/24 10:56 Dose 25 mg .ROUTE .STK-MED ONE Lab/Rad Data: Laboratory Result Diagrams 06/26/24 10:45 06/26/24 10:45 Laboratory Results 06/26/24 06/26/24 06/26/24 Range/Units 11:57 10:45 10:45 WBC (4.23-9.07) x10^3/uL RBC (4.63-6.08) x10^6/uL Hgb (13.7-17.5) g/dL Hct (40.1-51.0) % MCV (79.0-92.2) fL MCH (25.7-32.2) pg MCHC (32.3-36.5) g/dL RDW (11.6-14.4) % Plt Count (163-337) x10^3/uL MPV (9.4-12.4) fL Gran % (34.0-67.9) % Immature Gran % (Auto) (0.001-0.429) % Nucleat RBC Rel Count (0.00-0.2) % Eos # (Auto) (0.04-0.54) x10^3/uL Immature Gran # (Auto) (0.001-0.031) x10^3u/L Absolute Lymphs (auto) (1.32-3.57) x10^3/uL Absolute Monos (auto) (0.30-0.82) x10^3/uL Absolute Nucleated RBC (0.00-0.012) x10^3u/L Lymphocytes % (21.8-53.1) % Monocytes % (5.3-12.2) % Eosinophils % (0.8-7.0) % Basophils % (0.2-1.2) % Absolute Granulocytes (1.78-5.38) x10^3/uL Basophils # (0.01-0.08) x10^3/uL Sodium 139 (135-145) mmol/L Potassium 4.1 (3.5-5.1) mmol/L Chloride 100 (98-107) mmol/L Carbon Dioxide 25 (22-30) mmol/L Anion Gap 17.7 H (5-15) MEQ/L BUN 20 (9-20) mg/dL Creatinine 0.99 (0.66-1.25) mg/dL Estimated GFR 93.4 ML/MIN Glucose 97 (74-106) mg/dL POC Glucometer (74 to 106) mg/dL Calcium 9.4 (8.4-10.2) mg/dL Magnesium 2.3 (1.6-2.3) mg/dL Total Bilirubin 0.90 (0.2-1.3) mg/dL AST 39 (17-59) U/L ALT 33 (0-50) U/L Alkaline Phosphatase 100 (38-126) U/L Troponin I 0.014 (0.000-0.033) ng/mL Serum Total Protein 8.4 H (6.3-8.2) g/dL Albumin 4.8 (3.5-5.0) g/dL Urine Color Yellow (Yellow) Urine Appearance Clear (Clear) Urine pH 5.5 (4.6-8.0) Ur Specific [place] >=1.030 A (1.005-1.030) Urine Protein Negative (Negative) Urine Glucose (UA) >=1000 A (Negative) mg/dL Urine Ketones Trace A (Negative) Urine Blood Negative (Negative) Urine Nitrite Negative (Negative) Urine Bilirubin Negative (Negative) Urine Urobilinogen 0.2 (0.2) mg/dL Ur Leukocyte Esterase Negative (Negative) U Hyaline Cast (Auto) NONE SEEN (0-2) /LPF Urine Microscopic RBC 0-2 (0-5) /HPF Urine Microscopic WBC 0-2 (0-5) /HPF Ur Epithelial Cells None Seen (None Seen) /HPF Urine Bacteria None Seen (None Seen) /HPF Urine Culture Reflexed NO (NO) 06/26/24 06/26/24 Range/Units 10:45 10:19 WBC 5.7 (4.23-9.07) x10^3/uL RBC 5.58 (4.63-6.08) x10^6/uL Hgb 15.4 (13.7-17.5) g/dL Hct 45.6 (40.1-51.0) % MCV 81.7 (79.0-92.2) fL MCH 27.6 (25.7-32.2) pg MCHC 33.8 (32.3-36.5) g/dL RDW 13.5 (11.6-14.4) % Plt Count 261 (163-337) x10^3/uL MPV 9.7 (9.4-12.4) fL Gran % 49.0 (34.0-67.9) % Immature Gran % (Auto) 0.2 (0.001-0.429) % Nucleat RBC Rel Count 0.0 (0.00-0.2) % Eos # (Auto) 0.06 (0.04-0.54) x10^3/uL Immature Gran # (Auto) 0.01 (0.001-0.031) x10^3u/L Absolute Lymphs (auto) 2.33 (1.32-3.57) x10^3/uL Absolute Monos (auto) 0.45 (0.30-0.82) x10^3/uL Absolute Nucleated RBC 0.00 (0.00-0.012) x10^3u/L Lymphocytes % 41.2 (21.8-53.1) % Monocytes % 8.0 (5.3-12.2) % Eosinophils % 1.1 (0.8-7.0) % Basophils % 0.5 (0.2-1.2) % Absolute Granulocytes 2.78 (1.78-5.38) x10^3/uL Basophils # 0.03 (0.01-0.08) x10^3/uL Sodium (135-145) mmol/L Potassium (3.5-5.1) mmol/L Chloride (98-107) mmol/L Carbon Dioxide (22-30) mmol/L Anion Gap (5-15) MEQ/L BUN (9-20) mg/dL Creatinine (0.66-1.25) mg/dL Estimated GFR ML/MIN Glucose (74-106) mg/dL POC Glucometer 91 (74 to 106) mg/dL Calcium (8.4-10.2) mg/dL Magnesium (1.6-2.3) mg/dL Total Bilirubin (0.2-1.3) mg/dL AST (17-59) U/L ALT (0-50) U/L Alkaline Phosphatase (38-126) U/L Troponin I (0.000-0.033) ng/mL Serum Total Protein (6.3-8.2) g/dL Albumin (3.5-5.0) g/dL Urine Color (Yellow) Urine Appearance (Clear) Urine pH (4.6-8.0) Ur Specific [place] (1.005-1.030) Urine Protein (Negative) Urine Glucose (UA) (Negative) mg/dL Urine Ketones (Negative) Urine Blood (Negative) Urine Nitrite (Negative) Urine Bilirubin (Negative) Urine Urobilinogen (0.2) mg/dL Ur Leukocyte Esterase (Negative) U Hyaline Cast (Auto) (0-2) /LPF Urine Microscopic RBC (0-5) /HPF Urine Microscopic WBC (0-5) /HPF Ur Epithelial Cells (None Seen) /HPF Urine Bacteria (None Seen) /HPF Urine Culture Reflexed (NO) - Progress Progress: improved Progress Note: 06/26/24 13:32 48-year-old with history of stroke with right-sided residual numbness, CAD, diabetes mellitus is evaluated in the ER for dizziness. Patient has positional vertigo symptoms. Has some fluid behind right ear but has finished course of antibiotics 2 days ago. Patient was concerned about pain behind the right ear with some vertigo. Has no mastoid tenderness. Obtained CT head which is negative for any acute intracranial findings. No signs of mastoiditis. Normal white count, chemistries fairly unremarkable and negative troponins. Chest x-ray is negative for any acute cardiopulmonary findings reviewed by me followed by official read. I have given him meclizine, on reevaluation his symptoms are completely resolved. I believe patient has BPV with some element/contribution from otitis media recently treated with some effusion. I would not treat him with another course of antibiotics and also would not give him steroids for effusion as patient has a history of diabetes mellitus with complications leading to amputations. I believe it would resolve on its own and will give him meclizine to go home. Do not think patient needs a neuro consult at this point but discussed with him about signs symptoms of worsening needing return to ER which she seems understanding. Stable for discharge. Complexity of problem addressed: Moderate acute Complexity of data reviewed/analyzed: Moderate Risk of complication/morbidity/mortality associated with condition: Low to moderate 06/26/24 13:51 Counseled pt/family regarding: lab results, diagnosis, need for follow-up, rad results Medical Desision Making - Diagnostic Testing Diagnostic test were ordered, analyzed, and reviewed by me: Yes Radiological Interpretation: Interpreted by me, Reviewed by me - Risk of complications The pt has a mod risk of morbidity or mortality based on: Need for prescription drug management - Departure Departure Disposition: Home Clinical Impression: Positional vertigo of right ear Condition: Stable Critical Care Time: No Referrals: PALMA COLON NP [Primary Care Provider] - Follow up with PCP 1 day Instructions: Vertigo (a Type of Dizziness) (DC) Additional Instructions: Follow-up with primary care for reevaluation. Return to ER worsening of symptoms or if develop new numbness weakness, chest pain palpitations or shortness of breath Prescriptions: Meclizine HCl 25 mg [Antivert 25 mg] 25 mg PO Q8HPRN PRN #12 tablet PRN Reason: Dizziness
[2024-06-26 13:53] VITALS: BP 116/70; PULSE 84; RESP 17
== END 2024-06-26 13:50 | disposition home or self-care (01) ==
LOC: ED 10:09
DX: H81.11 Benign paroxysmal vertigo, right ear (principal); E11.9 Type 2 diabetes mellitus without complications; I10 Essential (primary) hypertension; Z79.02 Long term (current) use of antithrombotics/antiplatelets; Z79.4 Long term (current) use of insulin; Z79.84 Long term (current) use of oral hypoglycemic drugs; Z79.899 Other long term (current) drug therapy; Z59.819 Housing instability, housed unspecified
CPT/HCPCS: 36415; 70450; 71045; 80053; 81001; 82947; 83735; 84484; 85025; 93005; 93041; 99284; 99285; A9270-GY